=== PATIENT | female | born 1945 | race Caucasian/White ===

== ENCOUNTER 2017-12-06 23:35 | Inpatient (IN) | payer MEDICARE ==
[~2017-12-06] VITALS: Ht 167.6 cm; Wt 106.8 kg
--- NOTE | 2017-12-06 23:46 | NUR ---
Patient brought in by [id number], patient was ambulating on the street, stepped into a pothole and had an episode of fall. Patient states she felt her RLE "become weak after stepping into the pothole". 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 patient denies head injury or LOC. She is noted with RLE pain/ internal rotation of the RLE. Patient states she has dull, gnawing pain of 8/10. The fall was seen by her caregiver and caregiver confirms no head injury was present. Respirations even and unlabored. no SOB or congestion noted. No cardiovascular distress noted. All pulses present and palpable. RLE pulses present and palpable 2+. Skin color /turgor/ cap. refill WNL. No c/o GI/ pain or acute distress. Patient denies truma to the chest or thoracic area at this time. Patient placed in bed, bed in lowest position, wheels locked. Siderails up x2. Call light is within reach. All patient needs attended and met.
[2017-12-07] MEDS ORDERED: CLON0.2T PO (00:09)
[2017-12-07] MEDS ORDERED: VALS160T2 PO (00:09)
[2017-12-07] MEDS ORDERED: NIFE60TA69 PO (00:09)
[2017-12-07] MEDS ORDERED: CARV25TA2 PO (00:09)
[2017-12-07] MEDS ORDERED: CETI-102 PO (00:09)
[2017-12-07] MEDS ORDERED: ROSU20TA PO (00:09)
[2017-12-07] MEDS ORDERED: ESOM40CA PO (00:09)
[2017-12-07] MEDS ORDERED: ESCI20TA PO (00:09)
[2017-12-07] MEDS ORDERED: METF10004 PO (00:09)
--- NOTE | 2017-12-07 00:10 | NUR ---
XRAY AT PT BEDSIDE.
[2017-12-07 00:13] LABS: BASOPHILS # (AUTO) 0.1 K/uL (0.0-8.0); BASOPHILS % (AUTO) 0.9 % (0.0-2.0); CARBON DIOXIDE 25 mmol/L (21-32); CHLORIDE 101 mmol/L (98-107); EOSINOPHILS # (AUTO) 0.4 K/uL (0.0-0.7); EOSINOPHILS % (AUTO) 5.4 % (0.0-7.0); GLUCOSE 139 mg/dL (74-106); HEMATOCRIT 38.7 % (31.2-41.9); HEMOGLOBIN 12.6 g/dL (10.9-14.3); LYMPHOCYTES # (AUTO) 1.6 K/uL (20.0-40.0); LYMPHOCYTES % (AUTO) 20.1 % (20.5-51.5); MEAN CORPUSCULAR HEMOGLOBIN 28.5 uug (24.7-32.8); MEAN CORPUSCULAR HGB CONC 33 g/dL (32.3-35.6); MEAN CORPUSCULAR VOLUME 87.1 fL (75.5-95.3); MONOCYTES # (AUTO) 0.6 K/uL (2.0-10.0); MONOCYTES % (AUTO) 7.3 % (0.0-11.0); NEUTROPHILS # (AUTO) 5.2 K/uL (1.8-8.9); NEUTROPHILS % (AUTO) 66.3 % (38.5-71.5); PLATELET COUNT (AUTO) 211 K/uL (179-408); POTASSIUM 4.5 mmol/L (3.5-5.1); RED BLOOD CELL COUNT(AUTO) 4.44 MIL/uL (3.63-4.92); UREA NITROGEN, BLOOD 20 mg/dL (7-18); WHITE BLOOD COUNT (AUTO) 7.9 K/uL (3.8-11.8)
--- NOTE | 2017-12-07 00:14 | NUR ---
PT FRIEND/CAREGIVER AT BEDSIDE.
--- NOTE | 2017-12-07 00:31 | NUR ---
DR SOOD SPEAKING W/ ORTHO INSTRUMENT AND ELECTRICAL TECHNICIAN DR. ALVAREZ REGARDING PT ADMISSION.
--- NOTE | 2017-12-07 00:35 | NUR ---
DR SOOD SPEAKING W/ AGOSTO FOR PT ADMISSION.
[2017-12-07] MEDS ORDERED: IV NS 1000 ML 1,000 ML IV PRN (00:40)
[2017-12-07] MEDS ORDERED: HYDROCODONE/APAP 5-325MG TABLET PO PRN (00:45)
[2017-12-07] MEDS ORDERED: HYDROMORPHONE 2 MG/1 ML DISP.SYRIN ONE (00:55)
[2017-12-07] MEDS ORDERED: ONDANSETRON 4 MG/2 ML VIAL IV ONE (01:00)
[2017-12-07] MEDS ORDERED: HYDROMORPHONE 1 MG/1 ML DISP.SYRIN IV ONE (01:00)
--- NOTE | 2017-12-07 01:07 | NUR ---
REPORT GIVEN TO LUISITO BUSH.
--- NOTE | 2017-12-07 01:30 | NUR ---
Admit to [facility] from ER via [facility]. Transfer from [facility] to bed. Orientated pt to room and hospital setting. S/l x2 right and left a.c intact. pt belongings inventory done. v/s taken. Right leg shorter than left leg, right distal pulse intact and less than 2 seconds capillary refill to right great toe. Pt c/o of right hip pain only upon movement. right ankle edema pt states she fx her ankle a month ago. Siderails up. Call light within reach. Bed in lowest position. Bed wheels locked.
--- NOTE | 2017-12-07 01:31 | NUR ---
Pt. admitted to [facility], under care of TRINY Mcrae List completed
[2017-12-07 01:52] VITALS: BP 160/82
[2017-12-07] MEDS: MORPHINE SULFATE 4 MG/1 ML DISP.SYRIN IV PRN ×5 (02:34→20:05)
[2017-12-07 04:09] VITALS: BP 114/80
--- NOTE | 2017-12-07 06:12 | NUR ---
End of Shift: Lying in awake watching tv bed flat I.V. 0.9% infusing at 75cc hr to r ac suraj well. Remains npo. F/c drainging clear yellow urine via gravity. Siderails up, Call light within reach. bed in lowest position and bed wheels locked.
--- NOTE | 2017-12-07 08:00 | NUR ---
PT has shortened right leg and internally rotated. Discussed plan of care re: pain management, fall precaution, and frequent turning. Pt agreeable with plan of care. IV on merced AC intact. IVF infusing as ordered. Call light is within reach.
[2017-12-07] MEDS: VALSARTAN 160 MG TABLET PO SCH (08:38)
[2017-12-07] MEDS: METFORMIN HCL 500 MG TABLET PO SCH ×2 (08:39→16:52)
[2017-12-07] MEDS: ESCITALOPRAM OXALATE 10 MG TABLET PO SCH (08:39)
[2017-12-07] MEDS: NIFEdipine XL 60 MG TABSR PO SCH (08:40)
[2017-12-07] MEDS: CLONIDINE HCL 0.2 MG TABLET PO SCH ×2 (08:41→20:05)
[2017-12-07] MEDS: CETIRIZINE HCL 10 MG TABLET PO SCH (08:41)
[2017-12-07] MEDS: CARVEDILOL 25 MG TABLET PO SCH ×2 (08:41→16:53)
[2017-12-07] MEDS: PANTOPRAZOLE SODIUM 40 MG TABLET.DR PO SCH (08:45)
[2017-12-07] MEDS ORDERED: Medication Not On Formulary EA (Escitalopram Oxalate (Lexapro) 20 MG) PO SCH (09:00)
[2017-12-07] MEDS ORDERED: Medication Not On Formulary EA (Rosuvastatin Calcium (Crestor) 20 MG) PO SCH (09:00)
[2017-12-07] MEDS ORDERED: Medication Not On Formulary EA (Metformin Hcl 1,000 MG) PO SCH (09:00)
[2017-12-07] MEDS ORDERED: Medication Not On Formulary EA (Esomeprazole Mag Trihydrate (Nexium) 40 MG) PO SCH (09:00)
[2017-12-07] MEDS ORDERED: DEXTROSE 50% 50 ML DISP.SYRIN IV PRN (10:45)
[2017-12-07] MEDS: IV LACTATED RINGERS SOLUTION 1,000 ML IV PRN (11:12)
[2017-12-07] MEDS: INSULIN REGULAR, HUMAN 300 UNIT/3 ML VIAL SQ PRN ×2 (11:20→20:24)
[2017-12-07] MEDS ORDERED: POLYVINYL ALCOHOL OPHT DROPS 15 ML BOTTLE EACHEYE PRN (11:30)
[2017-12-07 11:49] VITALS: BP 123/68
[2017-12-07] MEDS: BLOOD SUGAR DIAGNOSTIC 1 EACH STRIP VI SCH ×3 (14:32→20:22)
[2017-12-07 16:08] VITALS: BP 176/87
--- NOTE | 2017-12-07 18:00 | NUR ---
Plan of care effective. Pts pain managed with Morphine 4 mg which was increased due to Morphinw 2 mg was not effective earlier this am. No witness fall noted this shift. Call light is within reach.
--- NOTE | 2017-12-07 18:26 | NUR ---
Plan of care effective. Pt's pain was managed after CAR RECORD CLERK increased MS to 4mg. PT states that her pain is more comfortable. PT's IVF LR infusing @ 75cc/hr. PT signed consent for tomorrow of R hip ORIF and agreeable with suspending DNI status - ordered Received from CAR RECORD CLERK. Pt is in no acute distress. Cardio saw pt and cleared for surgery tomorrow. Discussed NPO PMN with pt - pt verbalized understanding. Call light is within reach.
[2017-12-07] MEDS: ATORVASTATIN 40 MG TABLET PO SCH (20:05)
[2017-12-07] MEDS: Z GUARD REMEDY PASTE 57 GM TUBE TOP PRN (20:22)
[2017-12-07 20:40] VITALS: BP 174/86
[2017-12-07 21:26] LABS: *BILIRUBIN,URIN NEGATIVE (NEGATIVE); *BLOOD, URINE 2+ (NEGATIVE); *CLARITY,URINE CLEAR (CLEAR); *COLOR,URINE YELLOW (YELLOW); *KETONES,URINE NEGATIVE (NEGATIVE); *PROTEIN,URINE 1+ (NEGATIVE); *UROBILINOGEN,URINE 0.2 E.U./dl (NORMAL); LEUKOCYTE ESTERASE ,URINE NEGATIVE (NEGATIVE); NITRITE, URINE NEGATIVE (NEGATIVE); PH,URINE 5.5 (5.0-8.0); UGLUCOSE NEGATIVE (NEGATIVE)
[2017-12-07 21:35] LABS: BACTERIA,URINE MODERATE /HPF (NONE SEEN); SQUAMOUS EPITHELIAL CELL,UR FEW /HPF (NONE SEEN)
[2017-12-08] MEDS: MORPHINE SULFATE 4 MG/1 ML DISP.SYRIN IV PRN ×2 (02:22→20:29)
[2017-12-08] MEDS: IV LACTATED RINGERS SOLUTION 1,000 ML IV PRN (02:23)
[2017-12-08 04:16] VITALS: BP 164/75
[2017-12-08] MEDS: PANTOPRAZOLE SODIUM 40 MG TABLET.DR PO SCH (06:13)
[2017-12-08] MEDS: BLOOD SUGAR DIAGNOSTIC 1 EACH STRIP VI SCH ×4 (06:13→20:43)
[2017-12-08] MEDS: INSULIN REGULAR, HUMAN 300 UNIT/3 ML VIAL SQ PRN ×3 (06:16→20:44)
--- NOTE | 2017-12-08 06:18 | NUR ---
Morning accu check showed 225, covered w/ 2 units Regular Insulin SQ per SS coverage. No acute resp distress, vital signs WNL. Kept NPO & patient instructed.
[2017-12-08 06:55] LABS: CARBON DIOXIDE 30 mmol/L (21-32); CHLORIDE 101 mmol/L (98-107); CHOLESTEROL 117 mg/dL (<200); CREATININE 0.9 mg/dL (0.6-1.3); GLUCOSE 199 mg/dL (74-106); HDL CHOLESTEROL 64 mg/dL (40-60); MAGNESIUM 1.5 mg/dL (1.8-2.4); PHOSPHOROUS 3.4 mg/dL (2.5-4.9); POTASSIUM 4.8 mmol/L (3.5-5.1); TRIGLYCERIDES 85 MG/DL (30-150); UREA NITROGEN, BLOOD 12 mg/dL (7-18)
[2017-12-08 07:02] LABS: MEAN CORPUSCULAR HEMOGLOBIN 28.7 uug (24.7-32.8)
[2017-12-08 07:08] LABS: THYROID STIMULATING HORMONE 0.849 mIU/mL (0.358-3.740)
[2017-12-08] MEDS ORDERED: LIDOCAINE HCL 1% 20 ML VIAL MC ONE (07:21)
[2017-12-08] MEDS ORDERED: EPHEDRINE SULFATE 50 MG/ML AMPUL MC ONE (07:21)
[2017-12-08] MEDS ORDERED: CEFAZOLIN 1 G VIAL MC ONE (07:21)
[2017-12-08] MEDS ORDERED: PROPOFOL 200 MG/20 ML BOTTLE IV ONE (07:21)
[2017-12-08] MEDS ORDERED: GLYCOPYRROLATE 0.2 MG/ML VIAL MC ONE (07:21)
[2017-12-08] MEDS ORDERED: PHENYLEPHRINE 10 MG/1 ML VIAL MC ONE (07:21)
[2017-12-08] MEDS ORDERED: SEVOFLURANE 250 ML BOTTLE IH ONE (07:21)
[2017-12-08 07:33] LABS: BASOPHILS % (AUTO) 0.3 % (0.0-2.0); EOSINOPHILS # (AUTO) 0.1 K/uL (0.0-0.7); EOSINOPHILS % (AUTO) 2.2 % (0.0-7.0); LYMPHOCYTES # (AUTO) 0.7 K/uL (20.0-40.0); LYMPHOCYTES % (AUTO) 11.1 % (20.5-51.5); MEAN CORPUSCULAR HGB CONC 33 g/dL (32.3-35.6); MEAN CORPUSCULAR VOLUME 87.2 fL (75.5-95.3); MONOCYTES # (AUTO) 0.6 K/uL (2.0-10.0); MONOCYTES % (AUTO) 9.2 % (0.0-11.0); NEUTROPHILS # (AUTO) 5.1 K/uL (1.8-8.9); NEUTROPHILS % (AUTO) 77.2 % (38.5-71.5); PLATELET COUNT (AUTO) 182 K/uL (179-408); RED BLOOD CELL COUNT(AUTO) 3.79 MIL/uL (3.63-4.92); WHITE BLOOD COUNT (AUTO) 6.7 K/uL (3.8-11.8)
[2017-12-08 07:36] LABS: HEMOGLOBIN 10.9 g/dL (10.9-14.3)
--- NOTE | 2017-12-08 08:00 | NUR ---
pt alert and oriented x 4. Pt denies any c/o pain. Kept pt NPO for 4pm scheduled Right hip orif - consent signed. Yaron heels floated frequent turning implemented. Discussed plan of care for today re: proper pain mangement, npo status 2nd to surgery this afternoon, and fall precaution. IV LR infusing @ 75cc/hr. Call light is within reach.
[2017-12-08] MEDS: METFORMIN HCL 500 MG TABLET PO SCH ×2 (08:16→18:00)
[2017-12-08] MEDS: ESCITALOPRAM OXALATE 10 MG TABLET PO SCH (08:16)
[2017-12-08] MEDS: NIFEdipine XL 60 MG TABSR PO SCH (08:17)
[2017-12-08] MEDS: CETIRIZINE HCL 10 MG TABLET PO SCH (08:17)
[2017-12-08] MEDS: CLONIDINE HCL 0.2 MG TABLET PO SCH ×2 (08:18→20:26)
[2017-12-08] MEDS: CARVEDILOL 25 MG TABLET PO SCH ×2 (08:18→18:00)
[2017-12-08] MEDS: VALSARTAN 160 MG TABLET PO SCH (08:18)
[2017-12-08] MEDS ORDERED: CLONIDINE HCL 0.1 MG TABLET PO PRN (10:15)
[2017-12-08] MEDS: MAGNESIUM SULFATE/D5W 100 ML IV SCH ×2 (10:57→12:12)
[2017-12-08 11:48] VITALS: BP 93/47
[2017-12-08] MEDS ORDERED: BUPIVACAINE PF 0.5% 30 ML VIAL ONE (15:37)
[2017-12-08] MEDS ORDERED: POLYMYXIN B SULFATE 500,000 UNITS, BACITRACIN 50,000 UNITS, NORMAL SALINE 20 ML MC ONE ×3 (15:45)
[2017-12-08] MEDS ORDERED: CEFAZOLIN 2 G in IV DEXTROSE 5% 100 ML IV PRN (16:00)
[2017-12-08 16:12] VITALS: BP 90/46
--- NOTE | 2017-12-08 16:30 | NUR ---
Pt is picked up by surgical team. Consent signed, preop checklist done. Belongings of pt given to her caregiver.
[2017-12-08] MEDS ORDERED: FENTANYL CITRATE 100 MCG/2 ML AMPUL ONE ×2 (16:32→19:25)
[2017-12-08] MEDS ORDERED: ROCURONIUM BROMIDE 50 MG/5 ML VIAL ONE (16:32)
[2017-12-08 16:41] LABS: *BILIRUBIN,URIN NEGATIVE (NEGATIVE); *BLOOD, URINE 2+ (NEGATIVE); *CLARITY,URINE SLIGHTLY CLOUDY (CLEAR); *COLOR,URINE YELLOW (YELLOW); *KETONES,URINE NEGATIVE (NEGATIVE); *PROTEIN,URINE 2+ (NEGATIVE); *UROBILINOGEN,URINE 0.2 E.U./dl (NORMAL); NITRITE, URINE NEGATIVE (NEGATIVE); PH,URINE 5.5 (5.0-8.0)
[2017-12-08 16:57] LABS: LEUKOCYTE ESTERASE ,URINE TRACE (NEGATIVE); UGLUCOSE 1+ (NEGATIVE)
[2017-12-08 16:59] LABS: BACTERIA,URINE MANY /HPF (NONE SEEN); MUCUS,URINE FEW /LPF (0-FEW); RBC,URINE 20-50 /HPF (0-3); YEAST,URINE FEW /HPF (NONE SEEN)
--- NOTE | 2017-12-08 18:16 | NUR ---
pt still at downstairs for surgery. call light is within reach.
--- NOTE | 2017-12-08 19:24 | NUR ---
Patient still in Operating Room hip surgery on going.
[2017-12-08 20:20] VITALS: BP 136/55
--- NOTE | 2017-12-08 20:20 | NUR ---
Patient back from Recovery room, awake alert & oriented, no SOB denies chest pain. Right hip dressing intact & clean w/ ice pack in place. Still c/o right hip post op pain w/ 01/10 pain level. IVF NS at 100 ml/hr started as ordered. Left AC IV line in place no signs of infiltration. Vital signs stable.
[2017-12-08] MEDS: ATORVASTATIN 40 MG TABLET PO SCH (20:26)
[2017-12-08] MEDS: ONDANSETRON 4 MG/2 ML VIAL IV PRN (20:29)
[2017-12-08] MEDS ORDERED: HYDROCODONE/APAP 5-325MG TABLET PO PRN (20:45)
[2017-12-08] MEDS: Z GUARD REMEDY PASTE 57 GM TUBE TOP PRN (20:45)
[2017-12-08] MEDS: IV NS 1000 ML 1,000 ML IV PRN (20:46)
[2017-12-08] MEDS: ASPIRIN EC 325 MG TABLET.DR PO SCH (20:47)
[2017-12-08 21:00] VITALS: BP 125/74
--- NOTE | 2017-12-08 21:15 | NUR ---
Awake, with daughter at bedside. No pain complaint at this time. Re-checked vital signs : BP125/74 HR 76 RR 20 T 98.3 F O2Sat 96% in 2L/NC.
[2017-12-08 22:30] VITALS: BP 130/66
--- NOTE | 2017-12-08 23:00 | NUR ---
Patient still awake no SOB noted. Discussed & instructed to start breathing exercise, Incentive spirometer provided. Neurovascular check WNL. Patient able to wiggle toes denies any tingling sensation.
[2017-12-09] MEDS: CEFAZOLIN 1 G in PREMIXED 1 EACH IV SCH ×2 (00:58→08:06)
[2017-12-09] MEDS: MORPHINE SULFATE 4 MG/1 ML DISP.SYRIN IV PRN ×2 (01:03→21:55)
[2017-12-09 04:12] VITALS: BP 109/63
[2017-12-09] MEDS: PANTOPRAZOLE SODIUM 40 MG TABLET.DR PO SCH (05:13)
--- NOTE | 2017-12-09 05:32 | NUR ---
Repositioned in bed, right hip precaution observed. Medicated for pain PRN. Kept ice pack on right hip dressing site.
[2017-12-09] MEDS: BLOOD SUGAR DIAGNOSTIC 1 EACH STRIP VI SCH ×4 (06:03→20:12)
[2017-12-09 06:34] LABS: BASOPHILS % (AUTO) 0.3 % (0.0-2.0); EOSINOPHILS # (AUTO) 0.1 K/uL (0.0-0.7); EOSINOPHILS % (AUTO) 1.5 % (0.0-7.0); LYMPHOCYTES # (AUTO) 1.4 K/uL (20.0-40.0); LYMPHOCYTES % (AUTO) 18.9 % (20.5-51.5); MEAN CORPUSCULAR HEMOGLOBIN 29.7 uug (24.7-32.8); MEAN CORPUSCULAR HGB CONC 34 g/dL (32.3-35.6); MEAN CORPUSCULAR VOLUME 86.5 fL (75.5-95.3); MONOCYTES # (AUTO) 0.8 K/uL (2.0-10.0); MONOCYTES % (AUTO) 11.1 % (0.0-11.0); NEUTROPHILS # (AUTO) 5.2 K/uL (1.8-8.9); NEUTROPHILS % (AUTO) 68.2 % (38.5-71.5); PLATELET COUNT (AUTO) 159 K/uL (179-408); RED BLOOD CELL COUNT(AUTO) 2.82 MIL/uL (3.63-4.92); WHITE BLOOD COUNT (AUTO) 7.6 K/uL (3.8-11.8)
[2017-12-09] MEDS: IV NS 1000 ML 1,000 ML IV PRN ×2 (06:43→18:03)
[2017-12-09 06:47] LABS: HEMATOCRIT 24.4 % (31.2-41.9); HEMOGLOBIN 8.4 g/dL (10.9-14.3)
[2017-12-09] MEDS: INSULIN REGULAR, HUMAN 300 UNIT/3 ML VIAL SQ PRN ×4 (07:56→20:37)
[2017-12-09] MEDS: ESCITALOPRAM OXALATE 10 MG TABLET PO SCH (08:00)
[2017-12-09] MEDS: ASPIRIN EC 325 MG TABLET.DR PO SCH ×2 (08:00→17:01)
[2017-12-09] MEDS: METFORMIN HCL 500 MG TABLET PO SCH ×2 (08:00→17:56)
[2017-12-09] MEDS: CETIRIZINE HCL 10 MG TABLET PO SCH (08:00)
[2017-12-09] MEDS: VALSARTAN 160 MG TABLET PO SCH (08:01)
[2017-12-09] MEDS: CARVEDILOL 25 MG TABLET PO SCH (08:01)
[2017-12-09 08:57] LABS: ALANINE AMINOTRANSFERASE 15 U/L (14-59); ALKALINE PHOSPHATASE 64 U/L (50-136); ASPARTATE AMINOTRANSFERASE 20 U/L (15-37); BILIRUBIN,TOTAL 0.3 mg/dL (0.2-1.0); CARBON DIOXIDE 26 mmol/L (21-32); CHLORIDE 101 mmol/L (98-107); CREATININE 1.1 mg/dL (0.6-1.3); GLUCOSE 131 mg/dL (74-106); MAGNESIUM 1.9 mg/dL (1.8-2.4); PHOSPHOROUS 3.9 mg/dL (2.5-4.9); POTASSIUM 4.5 mmol/L (3.5-5.1); TOTAL PROTEIN, SERUM 5.6 g/dL (6.4-8.2); UREA NITROGEN, BLOOD 18 mg/dL (7-18)
[2017-12-09] MEDS: CLONIDINE HCL 0.2 MG TABLET PO SCH (09:06)
[2017-12-09] MEDS: NIFEdipine XL 60 MG TABSR PO SCH (09:06)
[2017-12-09 11:06] LABS: IRON, SERUM 13 ug/dL (50-175)
[2017-12-09 11:55] VITALS: BP 105/47
[2017-12-09] MEDS: FERROUS SULFATE 325 MG TABEC PO SCH ×2 (12:46→20:13)
[2017-12-09] MEDS: CEFTRIAXONE 1 G in IV DEXTROSE 5% 50 ML IV SCH (12:46)
[2017-12-09 15:47] VITALS: BP 99/52
--- NOTE | 2017-12-09 18:00 | NUR ---
Patient alert, in no distress. Right hip dressing clean/dry/intact, no bleeding noted. Patient c/o of pain upon movement but patient refuses to take pain medication, stating "I'm still ok". Patient teachings provided to ask for pain medication when needed and to avoid tolerating pain. Patient teachings provided for the use of incentive spirometer while awake. Patient verbalized understanding. Neurovascular assessment done every 2-4 hrs, patient able to wiggle toes, no c/o of numbness/tingling. Right hip alignment at all times. DVT pumps on. Repositioned patient for comfort, kept patient clean/dry. Parkinson cath intact/patent, draining yellow urine. Accuchecks done as ordered, no s/s of hypoglycemia/hyperglycemia noted. VS stable, afebrile. IVF running, no infiltration noted. Safety measures in place, call light within reach, bed alarm on. Will continue to monitor.
[2017-12-09 20:00] VITALS: BP 126/57
[2017-12-09] MEDS: ACETAMINOPHEN 325 MG TABLET PO PRN (20:13)
[2017-12-09] MEDS: ATORVASTATIN 40 MG TABLET PO SCH (20:13)
[2017-12-09] MEDS: MAGNESIUM HYDROXIDE 30 ML LIQUID UDC PO PRN (20:15)
[2017-12-09] MEDS: Z GUARD REMEDY PASTE 57 GM TUBE TOP PRN (20:20)
[2017-12-09] MEDS: ONDANSETRON 4 MG/2 ML VIAL IV PRN (21:38)
--- NOTE | 2017-12-09 22:06 | NUR ---
Patient awake no distress noted. Vital signs WNL. Right hip dressing intact & clean, kept ice pack on incision site dressing. Repositioned in bed, hip precaution observed. Medicated for pain PRN. No BM for 3 days, MOM given. Kept comfortable.
[2017-12-10] VITALS (9 sets, daily range): BP systolic 99–127; BP diastolic 51–68
[2017-12-10] MEDS: IV NS 1000 ML 1,000 ML IV PRN ×2 (04:53→23:00)
[2017-12-10] MEDS: PANTOPRAZOLE SODIUM 40 MG TABLET.DR PO SCH (05:10)
[2017-12-10] MEDS: BLOOD SUGAR DIAGNOSTIC 1 EACH STRIP VI SCH ×4 (05:30→21:35)
--- NOTE | 2017-12-10 05:35 | NUR ---
Noted frequent burping & passing gas, patient c/o abdominal cramps. Bedpan provided.
[2017-12-10 06:24] LABS: EOSINOPHILS # (AUTO) 0.3 K/uL (0.0-0.7); MONOCYTES # (AUTO) 0.9 K/uL (2.0-10.0); MONOCYTES % (AUTO) 10.6 % (0.0-11.0)
[2017-12-10 06:26] LABS: BASOPHILS % (AUTO) 0.2 % (0.0-2.0); EOSINOPHILS % (AUTO) 3.6 % (0.0-7.0); HEMATOCRIT 21.5 % (31.2-41.9); LYMPHOCYTES % (AUTO) 12.2 % (20.5-51.5); MEAN CORPUSCULAR HEMOGLOBIN 28.8 uug (24.7-32.8); MEAN CORPUSCULAR HGB CONC 34 g/dL (32.3-35.6); NEUTROPHILS # (AUTO) 6.2 K/uL (1.8-8.9); NEUTROPHILS % (AUTO) 73.4 % (38.5-71.5); PLATELET COUNT (AUTO) 157 K/uL (179-408); WHITE BLOOD COUNT (AUTO) 8.5 K/uL (3.8-11.8)
--- NOTE | 2017-12-10 06:29 | NUR ---
Patient still on a bedpan but no BM yet. Bedside commode provided
[2017-12-10 06:30] LABS: ALANINE AMINOTRANSFERASE 9 U/L (14-59); ALKALINE PHOSPHATASE 64 U/L (50-136); ASPARTATE AMINOTRANSFERASE 16 U/L (15-37); BILIRUBIN,TOTAL 0.2 mg/dL (0.2-1.0); CARBON DIOXIDE 30 mmol/L (21-32); CHLORIDE 103 mmol/L (98-107); GLUCOSE 198 mg/dL (74-106); MAGNESIUM 1.6 mg/dL (1.8-2.4); PHOSPHOROUS 1.9 mg/dL (2.5-4.9); POTASSIUM 4.5 mmol/L (3.5-5.1); TOTAL PROTEIN, SERUM 5.6 g/dL (6.4-8.2); UREA NITROGEN, BLOOD 17 mg/dL (7-18)
[2017-12-10 06:32] LABS: HEMOGLOBIN 7.2 g/dL (10.9-14.3)
--- NOTE | 2017-12-10 06:33 | NUR ---
Received a call from the lab., patient's current Hemoglobin is 7.2 g/dl. Paged Sarah WOODS on-call for orders.
--- NOTE | 2017-12-10 06:41 | NUR ---
Dr. Garay called back & ordered transfuse 1 unit PRBC now.
[2017-12-10] MEDS: MORPHINE SULFATE 4 MG/1 ML DISP.SYRIN IV PRN ×2 (07:02→13:41)
--- NOTE | 2017-12-10 07:21 | NUR ---
Obtained consent for blood transfusion, copy placed in chart. Report given to Maria A JORGE.
[2017-12-10] MEDS: FERROUS SULFATE 325 MG TABEC PO SCH ×2 (08:02→20:34)
[2017-12-10] MEDS: INSULIN REGULAR, HUMAN 300 UNIT/3 ML VIAL SQ PRN ×3 (08:02→17:08)
[2017-12-10] MEDS: METFORMIN HCL 500 MG TABLET PO SCH ×2 (08:03→17:01)
[2017-12-10] MEDS: ASPIRIN EC 325 MG TABLET.DR PO SCH (08:03)
[2017-12-10] MEDS: CETIRIZINE HCL 10 MG TABLET PO SCH (08:03)
[2017-12-10] MEDS: ESCITALOPRAM OXALATE 10 MG TABLET PO SCH (08:04)
[2017-12-10] MEDS: CEFTRIAXONE 1 G in IV DEXTROSE 5% 50 ML IV SCH (08:32)
--- NOTE | 2017-12-10 10:10 | NUR ---
Started blood transfusion, protocol followed, witnessed/verification done by/with another licensed RN.
[2017-12-10] MEDS: ACETAMINOPHEN 325 MG TABLET PO PRN (10:16)
[2017-12-10] MEDS ORDERED: DEXTROSE 50% 50 ML DISP.SYRIN IV PRN (10:30)
[2017-12-10] MEDS ORDERED: MAGNESIUM SULFATE/D5W 100 ML IV SCH ×2 (10:30→15:00)
[2017-12-10] MEDS ORDERED: INSULIN REGULAR, HUMAN 300 UNITS/3 ML VIAL SQ PRN (10:30)
[2017-12-10] MEDS ORDERED: NEUTRA PHOS PACKET PO ONE (10:30)
--- NOTE | 2017-12-10 10:30 | NUR ---
Blood transfusing, patient tolerating procedure well, no s/s of adverse reaction noted, no c/o of SOB or chest pain. Will continue to monitor.
--- NOTE | 2017-12-10 13:45 | NUR ---
Patient s/p blood transfusion 1 bag of PRBC. Patient tolerated procedure well, VS stable, afebrile. Will continue to monitor.
--- NOTE | 2017-12-10 15:00 | NUR ---
1 bag of magnesium administered scheduled 1030. Delay due to blood transfusion and physical therapy. Pharm notified.
[2017-12-10] MEDS: glipiZIDE 5 MG TABLET PO SCH (16:50)
[2017-12-10] MEDS: MEROPENEM 1 G in IV NORMAL SALINE 100 ML IV SCH ×2 (16:50→20:34)
[2017-12-10] MEDS: ATORVASTATIN 40 MG TABLET PO SCH (20:34)
[2017-12-11 04:00] VITALS: BP 147/77
[2017-12-11] MEDS: PANTOPRAZOLE SODIUM 40 MG TABLET.DR PO SCH (06:05)
[2017-12-11] MEDS: BLOOD SUGAR DIAGNOSTIC 1 EACH STRIP VI SCH ×4 (06:10→20:40)
[2017-12-11 06:37] LABS: BASOPHILS % (AUTO) 0.4 % (0.0-2.0); EOSINOPHILS # (AUTO) 0.3 K/uL (0.0-0.7); EOSINOPHILS % (AUTO) 3.6 % (0.0-7.0); HEMATOCRIT 24.9 % (31.2-41.9); HEMOGLOBIN 8.6 g/dL (10.9-14.3); LYMPHOCYTES # (AUTO) 0.9 K/uL (20.0-40.0); LYMPHOCYTES % (AUTO) 9.9 % (20.5-51.5); MEAN CORPUSCULAR HEMOGLOBIN 29.9 uug (24.7-32.8); MEAN CORPUSCULAR HGB CONC 35 g/dL (32.3-35.6); MEAN CORPUSCULAR VOLUME 86.5 fL (75.5-95.3); MONOCYTES # (AUTO) 0.7 K/uL (2.0-10.0); MONOCYTES % (AUTO) 8.1 % (0.0-11.0); NEUTROPHILS # (AUTO) 7.1 K/uL (1.8-8.9); PLATELET COUNT (AUTO) 173 K/uL (179-408); RED BLOOD CELL COUNT(AUTO) 2.87 MIL/uL (3.63-4.92); WHITE BLOOD COUNT (AUTO) 9.1 K/uL (3.8-11.8)
[2017-12-11 06:58] LABS: ALANINE AMINOTRANSFERASE 7 U/L (14-59); ALKALINE PHOSPHATASE 71 U/L (50-136); ASPARTATE AMINOTRANSFERASE 17 U/L (15-37); BILIRUBIN,TOTAL 0.4 mg/dL (0.2-1.0); CARBON DIOXIDE 30 mmol/L (21-32); CHLORIDE 104 mmol/L (98-107); CREATININE 0.9 mg/dL (0.6-1.3); GLUCOSE 187 mg/dL (74-106); MAGNESIUM 1.6 mg/dL (1.8-2.4); PHOSPHOROUS 1.2 mg/dL (2.5-4.9); POTASSIUM 4.9 mmol/L (3.5-5.1); TOTAL PROTEIN, SERUM 5.7 g/dL (6.4-8.2); UREA NITROGEN, BLOOD 12 mg/dL (7-18)
--- NOTE | 2017-12-11 07:06 | NUR ---
pt s/p right hip orif, with bulky dressing ,clean and dry.medicated with norco x1. vss,afebrile no bm gas only. poor appetite accucheck last night was 66 mg/dl and fed by caregiver rechecked 93mg, this morning 201 mg/dl.continue with iv fluids and antibiotics, call light at reached.
--- NOTE | 2017-12-11 07:53 | NUR ---
stable condition, no s/s distress. blood sugar will be monitor and controlled with insulin. bed rest at this time, will have physical therapy. will continue to monitor.
[2017-12-11] MEDS: CETIRIZINE HCL 10 MG TABLET PO SCH (08:03)
[2017-12-11] MEDS: FERROUS SULFATE 325 MG TABEC PO SCH ×2 (08:03→20:07)
[2017-12-11] MEDS: METFORMIN HCL 500 MG TABLET PO SCH ×2 (08:03→17:07)
[2017-12-11] MEDS: glipiZIDE 5 MG TABLET PO SCH (08:04)
[2017-12-11] MEDS: ESCITALOPRAM OXALATE 10 MG TABLET PO SCH (08:04)
[2017-12-11] MEDS: MEROPENEM 1 G in IV NORMAL SALINE 100 ML IV SCH (08:55)
[2017-12-11] MEDS: MORPHINE SULFATE 4 MG/1 ML DISP.SYRIN IV PRN (09:37)
[2017-12-11] MEDS ORDERED: NEUTRA PHOS PACKET PO ONE ×2 (10:15→17:00)
[2017-12-11] MEDS ORDERED: DEXTROSE 50% 50 ML DISP.SYRIN IV PRN (10:15)
[2017-12-11 11:08] VITALS: BP 172/85
--- NOTE | 2017-12-11 11:30 | NUR ---
blood sugar 148. insulin will not be administered due to prevention of hypoglycemia. patient has had a poor appetite and had one episode of hypoglycemia yesterday night. will do accucheck before dinner and provide blood sugar management as needed.
[2017-12-11] MEDS: MAGNESIUM SULFATE/D5W 100 ML IV SCH ×2 (11:37→13:12)
[2017-12-11 12:31] LABS: CARBON DIOXIDE 29 mmol/L (21-32); CHLORIDE 102 mmol/L (98-107); CREATININE 1.1 mg/dL (0.6-1.3); GLUCOSE 157 mg/dL (74-106); PHOSPHOROUS 1.5 mg/dL (2.5-4.9); POTASSIUM 4.8 mmol/L (3.5-5.1); UREA NITROGEN, BLOOD 13 mg/dL (7-18)
[2017-12-11] MEDS ORDERED: POTASSIUM PHOSPHATE MM 7.5 MMOL in IV DEXTROSE 5% 100 ML IV ONE (13:00)
[2017-12-11] MEDS: NITROFURANTOIN/NITROFURAN MAC 100 MG CAPSULE PO SCH ×2 (14:12→20:07)
[2017-12-11] MEDS: CARVEDILOL 25 MG TABLET PO SCH ×2 (14:13→17:06)
[2017-12-11] MEDS: DOCUSATE SODIUM 100 MG CAPSULE PO SCH ×2 (14:13→20:07)
[2017-12-11 15:04] VITALS: BP 179/94
[2017-12-11] MEDS: IV NS 1000 ML 1,000 ML IV PRN (15:36)
[2017-12-11] MEDS: INSULIN REGULAR, HUMAN 300 UNIT/3 ML VIAL SQ PRN ×2 (16:05→20:09)
[2017-12-11 16:19] VITALS: BP 161/88
[2017-12-11] MEDS ORDERED: MEROPENEM 1 G in IV NORMAL SALINE 100 ML IV SCH (17:00)
--- NOTE | 2017-12-11 17:59 | NUR ---
right lower extremity - pedal pulse present. no complaints of pain verbalized by patient. blood pressure elevated - managed with bp medications. afebrile. antibiotics administered. stable. call light within reach.
[2017-12-11] MEDS ORDERED: LEVOFLOXACIN 500 MG/D5W 500 MG in PREMIXED 1 EACH IV SCH (18:00)
[2017-12-11 19:00] VITALS: BP 165/87
[2017-12-11] MEDS: ATORVASTATIN 40 MG TABLET PO SCH (20:07)
[2017-12-11] MEDS: CLONIDINE HCL 0.2 MG TABLET PO SCH (20:11)
--- NOTE | 2017-12-11 20:30 | NUR ---
PATIENT AWAKE IN BED, AAOX3 DENIES PAIN OR ANY DISTRESS ON ASSESSMENT. BP ELEVATED, BP MEDS GIVEN ORDERED. DRSG TO RT HIP INTACT, NO FEVER. SAFETY MEASURES IN PLACE, CALL LIGHT LEFT WITHIN PATIENT'S REACH
[2017-12-12] MEDS ORDERED: MAGNESIUM HYDROXIDE 30 ML LIQUID UDC PO PRN (00:30)
[2017-12-12] MEDS: MAGNESIUM HYDROXIDE 30 ML LIQUID UDC PO PRN (00:51)
[2017-12-12 04:00] VITALS: BP 148/85
[2017-12-12] MEDS: BLOOD SUGAR DIAGNOSTIC 1 EACH STRIP VI SCH ×3 (06:25→16:13)
[2017-12-12 06:37] LABS: BASOPHILS # (AUTO) 0.1 K/uL (0.0-8.0); BASOPHILS % (AUTO) 0.7 % (0.0-2.0); EOSINOPHILS # (AUTO) 0.3 K/uL (0.0-0.7); EOSINOPHILS % (AUTO) 3.4 % (0.0-7.0); HEMATOCRIT 25.4 % (31.2-41.9); HEMOGLOBIN 8.8 g/dL (10.9-14.3); LYMPHOCYTES # (AUTO) 1.3 K/uL (20.0-40.0); LYMPHOCYTES % (AUTO) 17.8 % (20.5-51.5); MEAN CORPUSCULAR HEMOGLOBIN 29.9 uug (24.7-32.8); MEAN CORPUSCULAR HGB CONC 35 g/dL (32.3-35.6); MEAN CORPUSCULAR VOLUME 86.5 fL (75.5-95.3); MONOCYTES # (AUTO) 0.7 K/uL (2.0-10.0); MONOCYTES % (AUTO) 9.1 % (0.0-11.0); NEUTROPHILS # (AUTO) 5.2 K/uL (1.8-8.9); PLATELET COUNT (AUTO) 189 K/uL (179-408); RED BLOOD CELL COUNT(AUTO) 2.93 MIL/uL (3.63-4.92); WHITE BLOOD COUNT (AUTO) 7.5 K/uL (3.8-11.8)
[2017-12-12] MEDS: PANTOPRAZOLE SODIUM 40 MG TABLET.DR PO SCH (06:40)
[2017-12-12] MEDS: CLONIDINE HCL 0.2 MG TABLET PO SCH (06:40)
[2017-12-12 06:56] LABS: ALANINE AMINOTRANSFERASE 14 U/L (14-59); ALKALINE PHOSPHATASE 68 U/L (50-136); ASPARTATE AMINOTRANSFERASE 19 U/L (15-37); BILIRUBIN,TOTAL 0.5 mg/dL (0.2-1.0); CARBON DIOXIDE 29 mmol/L (21-32); CHLORIDE 104 mmol/L (98-107); CREATININE 0.9 mg/dL (0.6-1.3); GLUCOSE 90 mg/dL (74-106); PHOSPHOROUS 2.2 mg/dL (2.5-4.9); POTASSIUM 4.9 mmol/L (3.5-5.1); TOTAL PROTEIN, SERUM 5.9 g/dL (6.4-8.2); UREA NITROGEN, BLOOD 14 mg/dL (7-18)
--- NOTE | 2017-12-12 06:59 | NUR ---
PATIENT IS ASLEEP SLEPT WELL THROUGH THE SHIFT. NO C/O OF PAIN OR ACUTE DISTRESS ON THIS SHIFT. BP MANAGED PER MD ORDERS. NO FEVER ON THIS SHIFT. SAFETY MEASURES MAINTAINED AT ALL TIMES
--- NOTE | 2017-12-12 07:25 | NUR ---
pt resting comfortably in bed at this time. marks catheter dced during the microsoft systems engineer. pt in stable condition. insulin does not need to be administered this morning per sliding scale. blood pressure elevated, blood pressure will be monitored and managed. bed alarm on, fall risk. call light within reach. stable condition, no s/s of distress. will monitor throughout shift.
[2017-12-12] MEDS: CETIRIZINE HCL 10 MG TABLET PO SCH (08:16)
[2017-12-12] MEDS: DOCUSATE SODIUM 100 MG CAPSULE PO SCH (08:16)
[2017-12-12] MEDS: METFORMIN HCL 500 MG TABLET PO SCH ×2 (08:16→17:49)
[2017-12-12] MEDS: NITROFURANTOIN/NITROFURAN MAC 100 MG CAPSULE PO SCH (08:17)
[2017-12-12] MEDS: ESCITALOPRAM OXALATE 10 MG TABLET PO SCH (08:17)
[2017-12-12] MEDS: FERROUS SULFATE 325 MG TABEC PO SCH (08:17)
[2017-12-12] MEDS: CARVEDILOL 25 MG TABLET PO SCH ×2 (08:18→17:49)
[2017-12-12] MEDS: MORPHINE SULFATE 4 MG/1 ML DISP.SYRIN IV PRN (09:01)
--- NOTE | 2017-12-12 09:51 | NUR ---
participated with physical therapy. tolerated well. 50% weight bearing on right left. was able to walk with walker and assistance from physical therapist 50 feet. Addendum: 12/12/17 at 0954 by JUAN MCMAHON RN correction: 20 feet.
[2017-12-12] MEDS ORDERED: NEUTRA PHOS PACKET PO ONE (10:45)
[2017-12-12 11:28] VITALS: BP 101/59
[2017-12-12] MEDS ORDERED: MAGNESIUM HYDROXIDE 30 ML LIQUID UDC PO ONE (11:30)
[2017-12-12] MEDS ORDERED: BISACODYL 10 MG SUPP.RECT RC ONE (11:30)
[2017-12-12] MEDS: INSULIN REGULAR, HUMAN 300 UNIT/3 ML VIAL SQ PRN ×2 (11:33→16:42)
--- NOTE | 2017-12-12 13:00 | NUR ---
dulcolax suppository and milk of magnesia administered per md orders. planning for d/c today to [facility] facility.
[2017-12-12] MEDS ORDERED: SENNOSIDES 1 TABLET PO PRN (13:45)
[2017-12-12] MEDS ORDERED: BISACODYL 10 MG SUPP.RECT RC PRN (13:45)
[2017-12-12 15:24] VITALS: BP 146/80
[2017-12-12] MEDS ORDERED: INSU100V28 SQ (16:12)
[2017-12-12] MEDS ORDERED: LACT1CAP59 PO (16:12)
[2017-12-12] MEDS ORDERED: PANT40TA2 PO (16:12)
[2017-12-12] MEDS ORDERED: NITR100C11 PO (16:12)
[2017-12-12] MEDS ORDERED: FERR325T28 PO (16:12)
[2017-12-12] MEDS ORDERED: MAGN400O6 PO (16:12)
[2017-12-12] MEDS ORDERED: DOCU100C36 PO (16:12)
[2017-12-12] MEDS ORDERED: POLY15DR27 EACHEYE (16:12)
[2017-12-12] MEDS ORDERED: LEVO500T2 PO (16:12)
[2017-12-12] MEDS ORDERED: Blood Sugar Diagnostic VI (16:12)
[2017-12-12] MEDS ORDERED: BISA10SU12 RC (16:12)
[2017-12-12] MEDS ORDERED: CETI10TA14 PO (16:12)
[2017-12-12] MEDS ORDERED: HYDR-3326 PO (16:12)
[2017-12-12] MEDS ORDERED: METF500T6 PO (16:12)
[2017-12-12] MEDS ORDERED: ESCI10TA PO (16:12)
[2017-12-12] MEDS ORDERED: CLON0.2T12 PO (16:12)
[2017-12-12] MEDS ORDERED: CARV25TA2 PO (16:12)
[2017-12-12] MEDS ORDERED: ATOR40TA PO (16:12)
[2017-12-12] MEDS ORDERED: ACET325T53 PO (16:12)
[2017-12-12 17:49] VITALS: BP 148/60
--- NOTE | 2017-12-12 17:55 | NUR ---
PATIENT DISCHARGED TO [facility] AT THIS TIME IN STABLE CONDITION. REPORT GIVEN TO XI PRINCE AT [facility]. IV-DISCONNECTED. NO BARBOSA. BELONGINGS RETURNS AND CHECKLIST SIGNED. DISCHARGE INSTRUCTIONS/EDUCATION PROVIDED TO PATIENT. ID BAND TAKEN OFF. STABLE CONDITION AT DISCHARGE, VITAL SIGNS WNL FOR PATIENT. NO S/S OF DISTRESS. FORM OF TRANSPORTATION: AMBULANCE.
== END 2017-12-12 17:55 | DRG 480 ==
LOC: ER 23:37 → MED 12-07 00:58
PROVIDERS: ADMIT Nurse Practitioner Acute Care; ATTEND Internal Medicine
PROC: 0QS606Z Reposition Right Upper Femur with Intramedullary Internal Fixation Device, Open Approach (ICD-10-PCS; principal; 2017-12-08 16:41)
PROC: 30233N1 Transfusion of Nonautologous Red Blood Cells into Peripheral Vein, Percutaneous Approach (ICD-10-PCS; 2017-12-10)
DX: S72.21XA Displaced subtrochanteric fracture of right femur, initial encounter for closed fracture (principal); N17.0 Acute kidney failure with tubular necrosis; E43 Unspecified severe protein-calorie malnutrition; D69.6 Thrombocytopenia, unspecified; E83.39 Other disorders of phosphorus metabolism; E83.42 Hypomagnesemia; E11.9 Type 2 diabetes mellitus without complications; I34.0 Nonrheumatic mitral (valve) insufficiency; N39.0 Urinary tract infection, site not specified; E87.1 Hypo-osmolality and hyponatremia; D62 Acute posthemorrhagic anemia; B96.20 Unspecified Escherichia coli [E. coli] as the cause of diseases classified elsewhere; E78.5 Hyperlipidemia, unspecified; E66.9 Obesity, unspecified; F32.9 Major depressive disorder, single episode, unspecified; I25.10 Atherosclerotic heart disease of native coronary artery without angina pectoris; I51.7 Cardiomegaly; Z91.81 History of falling; Z90.49 Acquired absence of other specified parts of digestive tract; K59.00 Constipation, unspecified; K21.9 Gastro-esophageal reflux disease without esophagitis; Z88.2 Allergy status to sulfonamides; Y93.89 Activity, other specified; Y92.89 Other specified places as the place of occurrence of the external cause; D50.9 Iron deficiency anemia, unspecified; B95.2 Enterococcus as the cause of diseases classified elsewhere; I36.1 Nonrheumatic tricuspid (valve) insufficiency; Z79.84 Long term (current) use of oral hypoglycemic drugs; I10 Essential (primary) hypertension; W18.30XA Fall on same level, unspecified, initial encounter; Z96.611 Presence of right artificial shoulder joint; Z68.38 Body mass index [BMI] 38.0-38.9, adult
CPT/HCPCS: 36415; 70030-TC; 71045; 73502; 73503; 73551; 73610; 83550; 83735; 84100; 84443; 85025; 85730; 86850; 86900; 86901; 86920; 87040; 87077; 87086; 93005; 93307; 97110; 97116; 97530; A4649; A4663; J0690; J0696; J1170; J1815; J1956; J2185; J2270; J2370; J2405; J3010; J3475; J3490; J7030; J7050; J7060; J7120; P9016-BL; P9021

== ENCOUNTER 2019-05-23 21:33 | Inpatient (IN) | payer MEDICARE ==
[~2019-05-23] VITALS: Ht 162.6 cm; Wt 80.0 kg
[~2019-05-23 21:33] MED LIST: ACET325T53 PO; ATOR40TA PO; BISA10SU12 RC; Blood Sugar Diagnostic VI; CARV25TA2 PO; CETI10TA14 PO; CLON0.2T12 PO; DOCU100C36 PO; ESCI10TA PO; FERR325T28 PO; HYDR-3326 PO; INSU100V28 SQ; LACT1CAP59 PO; LEVO500T2 PO; MAGN400O6 PO; METF-440 PO; NIFE60TA69 PO; NITR100C11 PO; PANT40TA2 PO; POLY15DR27 EACHEYE; VALS160T2 PO
--- NOTE | 2019-05-23 21:44 | NUR ---
PATIENT BIB [facility] FROM HOME FOR TRIP AND FALL 30 MINUTES PRIOR TO ARRIVAL, C/O RIGHT KNEE PAIN, DID NOT LOOSE CONSCIOUSNESS, DID NOT HIT HEAD, NO OTHER C/O PAIN.
--- NOTE | 2019-05-23 21:49 | NUR ---
DR. WINCHESTER AT BEDSIDE FOR MSE.
[2019-05-23] MEDS ORDERED: HYDROCODONE/APAP 5-325MG TABLET ONE (21:59)
[2019-05-23] MEDS ORDERED: ONDANSETRON ODT 4 MG TAB.RAPDIS ONE (21:59)
--- NOTE | 2019-05-23 21:59 | NUR ---
PATIENT STATES TYHAT SHE HAS NOT TAKING HER NIGHT TIME BLOOD PRESSURE MEDICATION FOR TONIGHT, VERIFIED WITH YAEL KEE FOR PATIENT TO TAKE HOME MEDICATIONS AT THIS TIME.
[2019-05-23] MEDS ORDERED: ONDANSETRON ODT 4 MG TAB.RAPDIS SL ONE (22:00)
[2019-05-23] MEDS ORDERED: HYDROCODONE/APAP 5-325MG TABLET PO ONE (22:00)
--- NOTE | 2019-05-23 23:11 | NUR ---
DR. DIAZ ORTHO SPEAKING WITH DR. WINCHESTER AT THIS TIME.
[2019-05-23] MEDS ORDERED: ESCI20TA37 PO (23:13)
[2019-05-23] MEDS ORDERED: TRAM50TA2 PO (23:13)
[2019-05-23] MEDS ORDERED: ESOM40CA PO (23:13)
[2019-05-23] MEDS ORDERED: CLON0.2T PO (23:13)
[2019-05-23] MEDS ORDERED: ROSU20TA2 PO (23:13)
[2019-05-23] MEDS ORDERED: PIOG45TA5 PO (23:13)
--- NOTE | 2019-05-23 23:22 | NUR ---
DR. PERDUE PAGED, AWAITING CALL BACK.
[2019-05-23] MEDS ORDERED: MORPHINE SULFATE 2 MG/1 ML DISP.SYRIN IV ONE (23:45)
[2019-05-23] MEDS ORDERED: ONDANSETRON 4 MG/2 ML VIAL IV ONE (23:45)
[2019-05-23] MEDS ORDERED: MORPHINE SULFATE 2 MG/1 ML DISP.SYRIN ONE (23:52)
[2019-05-23] MEDS ORDERED: ONDANSETRON 4 MG/2 ML VIAL ONE (23:52)
--- NOTE | 2019-05-23 23:52 | NUR ---
DR. PERDUE CALLED BACK.
[2019-05-23 23:55] LABS: BASOPHILS % (AUTO) 0.3 % (0.0-2.0); EOSINOPHILS # (AUTO) 0.3 K/uL (0.0-0.7); HEMATOCRIT 39.7 % (31.2-41.9); HEMOGLOBIN 12.9 g/dL (10.9-14.3); LYMPHOCYTES # (AUTO) 1.2 K/uL (20.0-40.0); MEAN CORPUSCULAR HEMOGLOBIN 28.8 uug (24.7-32.8); MEAN CORPUSCULAR HGB CONC 33 g/dL (32.3-35.6); MEAN CORPUSCULAR VOLUME 88.8 fL (75.5-95.3); MONOCYTES # (AUTO) 0.5 K/uL (2.0-10.0); MONOCYTES % (AUTO) 6.3 % (0.0-11.0); NEUTROPHILS # (AUTO) 5.3 K/uL (1.8-8.9); NEUTROPHILS % (AUTO) 73.4 % (38.5-71.5); PLATELET COUNT (AUTO) 165 K/uL (179-408); RED BLOOD CELL COUNT(AUTO) 4.47 MIL/uL (3.63-4.92); WHITE BLOOD COUNT (AUTO) 7.2 K/uL (3.8-11.8)
[2019-05-24] MEDS ORDERED: TRAMADOL HCL 50 MG TABLET PO PRN
[2019-05-24] MEDS ORDERED: DEXTROSE 50% 50 ML DISP.SYRIN IV PRN
[2019-05-24 00:04] LABS: CREATININE 1.2 mg/dL (0.6-1.3); POTASSIUM 5.1 mmol/L (3.5-5.1)
[2019-05-24] MEDS ORDERED: HYDROCODONE/APAP 5-325MG TABLET PO PRN ×2 (00:15→07:30)
[2019-05-24] MEDS ORDERED: Z GUARD REMEDY PASTE 57 GM TUBE TOP PRN (00:15)
[2019-05-24] MEDS ORDERED: ONDANSETRON 4 MG/2 ML VIAL IV PRN (00:15)
[2019-05-24] MEDS ORDERED: MAGNESIUM HYDROXIDE 30 ML LIQUID UDC PO PRN (00:15)
--- NOTE | 2019-05-24 00:15 | NUR ---
PATIENT BACK FROM CT.
[2019-05-24] MEDS ORDERED: LABETALOL HCL 100 MG/20 ML VIAL IV ONE (00:30)
[2019-05-24] MEDS: CLONIDINE HCL 0.2 MG TABLET PO SCH ×4 (00:30→16:24)
[2019-05-24] MEDS ORDERED: hydrALAZINE HCL 25 MG TABLET PO PRN (00:30)
[2019-05-24] MEDS ORDERED: LABETALOL HCL 100 MG/20 ML VIAL ONE (00:34)
--- NOTE | 2019-05-24 00:46 | NUR ---
Pt. admitted to [facility] , under care of Dr. PERDUE Belongs List completed.
--- NOTE | 2019-05-24 01:15 | NUR ---
Patient is a 74 year old female admitted from emergency department to Med/Surg with diagnosis of right tib/fib fracture. Patient stable when transferred. Knee immobilizer in tact. Admission protocols in place. Immediate needs attended. Catapres held; in reference to ED nurse's note patient took Catapres in the ER. Safety protocols in place. Will continue to monitor patient.
[2019-05-24 01:19] VITALS: BP 152/71
[2019-05-24] MEDS: IV D5 1/2 NS 1000 ML 1,000 ML IV PRN ×2 (01:36→14:01)
[2019-05-24 03:17] LABS: *BILIRUBIN,URIN NEGATIVE (NEGATIVE); *BLOOD, URINE 2+ (NEGATIVE); *COLOR,URINE YELLOW (YELLOW); *KETONES,URINE NEGATIVE (NEGATIVE); *UROBILINOGEN,URINE 0.2 E.U./dl (NORMAL); LEUKOCYTE ESTERASE ,URINE 3+ (NEGATIVE); NITRITE, URINE POSITIVE (NEGATIVE); UGLUCOSE NEGATIVE (NEGATIVE)
[2019-05-24 03:23] LABS: *CLARITY,URINE HAZY (CLEAR)
[2019-05-24 03:24] LABS: BACTERIA,URINE MANY /HPF (NONE SEEN); SQUAMOUS EPITHELIAL CELL,UR MODERATE /HPF (NONE SEEN); WBC,URINE 20-50 /HPF (0-3)
[2019-05-24 05:06] VITALS: BP 169/81
[2019-05-24] MEDS: MORPHINE SULFATE 2 MG/1 ML DISP.SYRIN IV PRN ×3 (05:21→15:59)
[2019-05-24] MEDS: PANTOPRAZOLE SODIUM 40 MG TABLET.DR PO SCH (06:33)
[2019-05-24] MEDS: BLOOD SUGAR DIAGNOSTIC 1 EACH STRIP VI SCH ×4 (06:38→20:48)
--- NOTE | 2019-05-24 07:00 | NUR ---
Patient slept intermittently throughout the night. Complaints of pain in rt. knee, morphine given for pain. Patient states still in despite morphine given about 2 hours ago. Will endorse to oncoming nurse. Patient also recently states she did not take blood sugar pill last night. Will endorse to oncoming shift.
--- NOTE | 2019-05-24 07:49 | NUR ---
Systolic BP in the 200s, catapres 0.2 given. Will endorse to oncoming shift
--- NOTE | 2019-05-24 07:54 | NUR ---
AWAKE ALERT ASSYMPTOMATIC AT THIS TIME RELATED TO ELEVATED BLOOD PRESSURE TELE IS SR REMAIN NPO ORDERED RIGHT LEG WITH IMMOBILIZER INTACT WITH ADEQUATE CIRCULATION AT THIS TIME CALL LIGHTS AND PERSONAL BELONGINGS ARE WITHIN EASY REACH MADE COMFORTABLE AND WILL CONTINUE TO OBSERVE.
[2019-05-24] MEDS: INSULIN REGULAR, HUMAN 300 UNIT/3 ML VIAL SQ PRN ×3 (07:55→16:35)
[2019-05-24] MEDS ORDERED: Medication Not On Formulary EA (Esomeprazole Mag Trihydrate (Nexium) 40 MG) PO SCH (09:00)
[2019-05-24] MEDS ORDERED: CLONIDINE HCL 0.2 MG TABLET PO SCH (09:00)
[2019-05-24] MEDS ORDERED: Medication Not On Formulary EA (Rosuvastatin Calcium (Crestor) 20 MG) PO SCH (09:00)
[2019-05-24] MEDS: ESCITALOPRAM OXALATE 10 MG TABLET PO SCH (09:04)
[2019-05-24] MEDS: CARVEDILOL 25 MG TABLET PO SCH ×2 (09:07→17:34)
--- NOTE | 2019-05-24 10:33 | NUR ---
NEW ORDERS NOTED FROM JEFFREY CHRISTIANSON TO START PATIENT ON ATB FOR UTI AND NOTED
--- NOTE | 2019-05-24 11:08 | NUR ---
PATIENT SEEN AND EXAMINED BY JEFFREY AND STATED THAT IF THE ORTHO HAS NOT BEEN HERE TO VISIT PATIENT AND MAKE DECISION ABOUT SURGERY BY DINNER TIME THEN PATIENT SHOULD EAT DINNER AND THEN START NPO AFTER MID NITE AND NOTED
[2019-05-24 11:44] VITALS: BP 191/68
[2019-05-24] MEDS: CEFTRIAXONE 1 G in IV DEXTROSE 5% 50 ML IV SCH (11:50)
[2019-05-24] MEDS: hydrALAZINE HCL 25 MG TABLET PO PRN (11:50)
[2019-05-24 16:00] VITALS: BP 131/62
--- NOTE | 2019-05-24 17:36 | NUR ---
PATIENT TOLERATED DINNER ORDERED WILL PLACE HER BACK ON NPO AFTER AWAITING FOR DR DIAZ TO SEE PATIENT.HE WAS CALLED BY THE MARKETING ANALYTICS ANALYST AND HE STATED WILL BE HERE TODAY OR TOMORROW MORNING.
[2019-05-24 20:35] VITALS: BP 147/73
[2019-05-24] MEDS: ATORVASTATIN 40 MG TABLET PO SCH (20:47)
[2019-05-24] MEDS: INSULIN REGULAR, HUMAN 300 UNITS/3 ML VIAL SQ PRN (20:49)
--- NOTE | 2019-05-24 23:01 | NUR ---
RECEIVED PT AWAKE, ALERT AND ORIENTEDX4. PT SHOWS NO SIGNS OF ACUTE DISTRESS. FAMILY AT BEDSIDE. PT IV INTACT. BARBOSA INTACT. SAFETY AND COMFORT PROVIDED. WILL CONTINUE TO MONITOR.
[2019-05-25] MEDS: MORPHINE SULFATE 2 MG/1 ML DISP.SYRIN IV PRN ×2 (01:05→06:58)
[2019-05-25] MEDS: CLONIDINE HCL 0.2 MG TABLET PO SCH ×3 (04:48→17:59)
[2019-05-25] MEDS: IV D5 1/2 NS 1000 ML 1,000 ML IV PRN ×3 (04:51→21:02)
[2019-05-25] MEDS: ACETAMINOPHEN 325 MG TABLET PO PRN (05:51)
[2019-05-25] MEDS: hydrALAZINE HCL 25 MG TABLET PO PRN (05:52)
[2019-05-25 05:53] VITALS: BP 195/99
[2019-05-25] MEDS: PANTOPRAZOLE SODIUM 40 MG TABLET.DR PO SCH (06:54)
[2019-05-25] MEDS: BLOOD SUGAR DIAGNOSTIC 1 EACH STRIP VI SCH ×4 (06:57→20:54)
[2019-05-25 07:04] VITALS: BP 137/58
[2019-05-25 07:04] LABS: CARBON DIOXIDE 26 mmol/L (21-32); CHLORIDE 102 mmol/L (98-107); CREATININE 1.1 mg/dL (0.6-1.3); GLUCOSE 216 mg/dL (74-106); MAGNESIUM 1.6 mg/dL (1.8-2.4); PHOSPHOROUS 3.3 mg/dL (2.5-4.9); POTASSIUM 4.7 mmol/L (3.5-5.1); UREA NITROGEN, BLOOD 14 mg/dL (7-18)
--- NOTE | 2019-05-25 07:13 | NUR ---
PT SLEPT INTERMITTENTLY. PT SHOWS NO SIGNS OF ACUTE DISTRESS. IV INTACT. BARBOSA INTACT. PRESCRIBED MEDICATION GIVEN AND PT TOLERATED IT WELL. BP MEDICATIONS GIVEN. CATAPRESS, HYDRALAZINE GIVEN. BP NOW IS 137/58. PULSE 58. MORPHINE GIVEN FOR PAIN. PT TOLERATED IT WELL. DR MARCOS AWARE OF THE BP OF THE PT. PT AFEBRILE. SAFETY AND COMFORT PROVIDED. ALL NEEDS ARE MET.WILL ENDORSE TO INCOMING NURSE FOR CONTINUITY OF CARE.
[2019-05-25 07:15] LABS: BASOPHILS % (AUTO) 0.2 % (0.0-2.0); EOSINOPHILS # (AUTO) 0.1 K/uL (0.0-0.7); EOSINOPHILS % (AUTO) 1.7 % (0.0-7.0); HEMATOCRIT 36.8 % (31.2-41.9); HEMOGLOBIN 11.9 g/dL (10.9-14.3); LYMPHOCYTES # (AUTO) 0.8 K/uL (20.0-40.0); LYMPHOCYTES % (AUTO) 11.1 % (20.5-51.5); MEAN CORPUSCULAR HEMOGLOBIN 29.4 uug (24.7-32.8); MEAN CORPUSCULAR HGB CONC 32 g/dL (32.3-35.6); MEAN CORPUSCULAR VOLUME 90.8 fL (75.5-95.3); MONOCYTES # (AUTO) 0.8 K/uL (2.0-10.0); MONOCYTES % (AUTO) 11.1 % (0.0-11.0); NEUTROPHILS # (AUTO) 5.7 K/uL (1.8-8.9); NEUTROPHILS % (AUTO) 75.9 % (38.5-71.5); PLATELET COUNT (AUTO) 144 K/uL (179-408); RED BLOOD CELL COUNT(AUTO) 4.06 MIL/uL (3.63-4.92); WHITE BLOOD COUNT (AUTO) 7.6 K/uL (3.8-11.8)
--- NOTE | 2019-05-25 09:10 | NUR ---
Report received from endorsing nurse; patient calm and comfortable with no signs of distress; patient will continue to be monitored.
[2019-05-25] MEDS: ESCITALOPRAM OXALATE 10 MG TABLET PO SCH (09:44)
[2019-05-25] MEDS: CARVEDILOL 25 MG TABLET PO SCH ×2 (09:45→17:59)
[2019-05-25] MEDS: INSULIN REGULAR, HUMAN 300 UNIT/3 ML VIAL SQ PRN ×3 (09:49→16:52)
[2019-05-25 11:17] VITALS: BP 123/55
[2019-05-25] MEDS: CEFTRIAXONE 1 G in IV DEXTROSE 5% 50 ML IV SCH (12:39)
[2019-05-25] MEDS: MAGNESIUM SULFATE/D5W 100 ML IV SCH ×2 (14:08→16:43)
[2019-05-25] MEDS: VALSARTAN 40 MG TABLET PO SCH (14:10)
[2019-05-25 15:14] VITALS: BP 195/81
--- NOTE | 2019-05-25 18:45 | NUR ---
Patient calm and comfortable through out shift; patient will have surgery at 12am rafia ; Patient medication compliant; patient to be kept NPO past midnight ; Report given to oncoming nurse.
[2019-05-25 20:00] VITALS: BP 152/62
[2019-05-25] MEDS: ATORVASTATIN 40 MG TABLET PO SCH (20:51)
[2019-05-25] MEDS: INSULIN REGULAR, HUMAN 300 UNITS/3 ML VIAL SQ PRN (20:57)
[2019-05-26] MEDS: MORPHINE SULFATE 2 MG/1 ML DISP.SYRIN IV PRN (03:35)
[2019-05-26 05:58] VITALS: BP 181/73
[2019-05-26] MEDS: PANTOPRAZOLE SODIUM 40 MG TABLET.DR PO SCH (06:00)
[2019-05-26] MEDS: hydrALAZINE HCL 25 MG TABLET PO PRN (06:00)
[2019-05-26] MEDS: ACETAMINOPHEN 325 MG TABLET PO PRN (06:09)
[2019-05-26] MEDS: BLOOD SUGAR DIAGNOSTIC 1 EACH STRIP VI SCH ×4 (06:36→21:21)
--- NOTE | 2019-05-26 06:50 | NUR ---
patient kept comfortable, pain managed, consent in chart, report given to surgery nurse and oncoming morning shift nurse. patient is NPO since midnight. had episode of high bp, hydralazine given PRN. no acute changes
[2019-05-26 07:01] LABS: BASOPHILS % (AUTO) 0.3 % (0.0-2.0); EOSINOPHILS # (AUTO) 0.3 K/uL (0.0-0.7); EOSINOPHILS % (AUTO) 5.3 % (0.0-7.0); HEMOGLOBIN 11.5 g/dL (10.9-14.3); LYMPHOCYTES # (AUTO) 1.3 K/uL (20.0-40.0); LYMPHOCYTES % (AUTO) 20.4 % (20.5-51.5); MEAN CORPUSCULAR HEMOGLOBIN 29.3 uug (24.7-32.8); MEAN CORPUSCULAR HGB CONC 33 g/dL (32.3-35.6); MONOCYTES # (AUTO) 0.6 K/uL (2.0-10.0); MONOCYTES % (AUTO) 10.2 % (0.0-11.0); NEUTROPHILS # (AUTO) 4.1 K/uL (1.8-8.9); NEUTROPHILS % (AUTO) 63.8 % (38.5-71.5); PLATELET COUNT (AUTO) 144 K/uL (179-408); RED BLOOD CELL COUNT(AUTO) 3.93 MIL/uL (3.63-4.92); WHITE BLOOD COUNT (AUTO) 6.4 K/uL (3.8-11.8)
[2019-05-26 07:07] LABS: CARBON DIOXIDE 29 mmol/L (21-32); CHLORIDE 105 mmol/L (98-107); GLUCOSE 178 mg/dL (74-106); MAGNESIUM 2.1 mg/dL (1.8-2.4); POTASSIUM 4.7 mmol/L (3.5-5.1); UREA NITROGEN, BLOOD 13 mg/dL (7-18)
--- NOTE | 2019-05-26 07:30 | NUR ---
Patient calm and comfortable with no signs of distress; patient medication compliant ; patient will be kept NPO status for am surgical procedure.
[2019-05-26] MEDS: CARVEDILOL 25 MG TABLET PO SCH ×2 (08:04→17:06)
[2019-05-26] MEDS: VALSARTAN 40 MG TABLET PO SCH (08:05)
[2019-05-26] MEDS: ESCITALOPRAM OXALATE 10 MG TABLET PO SCH (08:05)
[2019-05-26] MEDS: CLONIDINE HCL 0.2 MG TABLET PO SCH ×3 (08:05→17:06)
[2019-05-26] MEDS: INSULIN REGULAR, HUMAN 300 UNIT/3 ML VIAL SQ PRN ×2 (08:07→17:11)
[2019-05-26] MEDS ORDERED: POLYMYXIN B SULFATE 500,000 UNITS, BACITRACIN 50,000 UNITS, NORMAL SALINE 20 ML MC ONE ×3 (10:00)
--- NOTE | 2019-05-26 10:30 | NUR ---
Patient taken to surgery in stable condition; all surgical consents signed.
[2019-05-26] MEDS ORDERED: HYDROMORPHONE 2 MG/1 ML DISP.SYRIN ONE (11:05)
[2019-05-26] MEDS ORDERED: BUPIVACAINE PF 0.5% 30 ML VIAL ONE (11:11)
[2019-05-26] MEDS: CEFTRIAXONE 1 G in IV DEXTROSE 5% 50 ML IV SCH (11:30)
[2019-05-26] MEDS ORDERED: LABETALOL HCL 100 MG/20 ML VIAL ONE (13:19)
[2019-05-26] MEDS ORDERED: FENTANYL CITRATE 100 MCG/2 ML AMPUL ONE (13:27)
[2019-05-26] MEDS ORDERED: hydrALAZINE HCL 20 MG/1 ML VIAL ONE (13:35)
[2019-05-26 15:05] VITALS: BP 165/68
[2019-05-26 15:20] VITALS: BP 157/57
[2019-05-26 15:35] VITALS: BP 123/100
[2019-05-26 15:50] VITALS: BP 151/75
[2019-05-26] MEDS: IV D5 1/2 NS 1000 ML 1,000 ML IV PRN (17:09)
--- NOTE | 2019-05-26 19:09 | NUR ---
Patient calm and cooperative during shift; patient came back from surgery in stable condition; Rocephin due at 11:30 was given to surgery nurse prior to surgery and was given during surgery ( see patient chart ) . Patient with no signs of distress; and medication compliant.
--- NOTE | 2019-05-26 19:44 | NUR ---
Patient calm and cooperative during shift; patient back from surgery in stable condition; orders were placed for regular diet and pt evaluation. Report given to oncoming nurse.
[2019-05-26] MEDS: CEFAZOLIN 2 G in IV DEXTROSE 5% 100 ML IV SCH (19:46)
[2019-05-26 20:00] VITALS: BP 97/41
[2019-05-26] MEDS: ATORVASTATIN 40 MG TABLET PO SCH (21:14)
[2019-05-26] MEDS: ENOXAPARIN SODIUM 40 MG/0.4 ML DISP.SYRIN SQ SCH (21:17)
[2019-05-26] MEDS: INSULIN REGULAR, HUMAN 300 UNITS/3 ML VIAL SQ PRN (21:32)
[2019-05-27] MEDS: CEFAZOLIN 2 G in IV DEXTROSE 5% 100 ML IV SCH (03:13)
[2019-05-27 04:00] VITALS: BP 150/77
[2019-05-27] MEDS: IV D5 1/2 NS 1000 ML 1,000 ML IV PRN ×2 (05:52→19:32)
[2019-05-27] MEDS: PANTOPRAZOLE SODIUM 40 MG TABLET.DR PO SCH (06:12)
[2019-05-27] MEDS: MORPHINE SULFATE 2 MG/1 ML DISP.SYRIN IV PRN ×4 (06:17→21:43)
--- NOTE | 2019-05-27 06:20 | NUR ---
patient received lying in bed watching tv. no signs of acute distress and v/s stable throughout shift. dvt pump on left leg my shift. safety and comfort measures provided at all times. education provided for incentive spirometer and patient verbalized understanding. Parkinson catheter patent and intact. morphine administered once for c/o of pain and tolerated well. all medications administered and tolerated well.
[2019-05-27] MEDS: BLOOD SUGAR DIAGNOSTIC 1 EACH STRIP VI SCH ×4 (06:34→20:09)
--- NOTE | 2019-05-27 07:00 | NUR ---
Received patient in Bed, awake, alert and verbally responsive. No signs of distress noted. On Oxygen at 3LPM via Nasal canula. NO complain of Pain at this time. Kept clean and comfortable. kept the call light within easy reach. Will continue to monitor.
[2019-05-27 07:09] LABS: CARBON DIOXIDE 28 mmol/L (21-32); CHLORIDE 103 mmol/L (98-107); CREATININE 1.1 mg/dL (0.6-1.3); GLUCOSE 192 mg/dL (74-106); POTASSIUM 5.1 mmol/L (3.5-5.1); UREA NITROGEN, BLOOD 17 mg/dL (7-18)
[2019-05-27 07:10] LABS: BASOPHILS % (AUTO) 0.2 % (0.0-2.0); EOSINOPHILS % (AUTO) 0.1 % (0.0-7.0); LYMPHOCYTES # (AUTO) 0.6 K/uL (20.0-40.0); MONOCYTES # (AUTO) 0.8 K/uL (2.0-10.0)
[2019-05-27 07:22] LABS: HEMATOCRIT 32.6 % (31.2-41.9); HEMOGLOBIN 10.7 g/dL (10.9-14.3); LYMPHOCYTES % (AUTO) 7.1 % (20.5-51.5); MEAN CORPUSCULAR HEMOGLOBIN 29.8 uug (24.7-32.8); MEAN CORPUSCULAR HGB CONC 33 g/dL (32.3-35.6); MEAN CORPUSCULAR VOLUME 90.6 fL (75.5-95.3); MONOCYTES % (AUTO) 9.9 % (0.0-11.0); NEUTROPHILS # (AUTO) 6.8 K/uL (1.8-8.9); NEUTROPHILS % (AUTO) 82.7 % (38.5-71.5); PLATELET COUNT (AUTO) 144 K/uL (179-408); RED BLOOD CELL COUNT(AUTO) 3.59 MIL/uL (3.63-4.92)
[2019-05-27 07:26] LABS: WHITE BLOOD COUNT (AUTO) 8.2 K/uL (3.8-11.8)
[2019-05-27] MEDS: CARVEDILOL 25 MG TABLET PO SCH ×2 (07:52→17:53)
[2019-05-27] MEDS: INSULIN REGULAR, HUMAN 300 UNIT/3 ML VIAL SQ PRN ×3 (07:55→17:21)
[2019-05-27] MEDS: CLONIDINE HCL 0.2 MG TABLET PO SCH ×3 (09:09→17:18)
[2019-05-27] MEDS: ESCITALOPRAM OXALATE 10 MG TABLET PO SCH (09:09)
[2019-05-27] MEDS: VALSARTAN 40 MG TABLET PO SCH (09:09)
[2019-05-27 11:36] VITALS: BP 110/59
[2019-05-27] MEDS: CEphaleXIN 500 MG CAPSULE PO SCH ×2 (13:45→21:43)
[2019-05-27 15:28] VITALS: BP 143/59
--- NOTE | 2019-05-27 18:45 | NUR ---
Patient in Bed, awake, alert and verbally responsive. No signs of Distress noted. Pain medication given as ordered. PT/OT as Ordered. BS check ACHS, latest Blood Sugar is 192, 3 units insulin given as ordered per sliding scale. No signs of Hyper/Hypoglycemia. All needs attended and met. kept clean and comfortable. Will Endorse to Oncoming Nurse.
[2019-05-27 19:45] VITALS: BP 115/55
[2019-05-27] MEDS: ATORVASTATIN 40 MG TABLET PO SCH (20:02)
[2019-05-27] MEDS: ENOXAPARIN SODIUM 40 MG/0.4 ML DISP.SYRIN SQ SCH (20:04)
[2019-05-27] MEDS: INSULIN REGULAR, HUMAN 300 UNITS/3 ML VIAL SQ PRN (20:05)
[2019-05-28 04:45] VITALS: BP 135/67
[2019-05-28] MEDS: IV D5 1/2 NS 1000 ML 1,000 ML IV PRN ×2 (05:30→17:43)
[2019-05-28] MEDS: CEphaleXIN 500 MG CAPSULE PO SCH ×3 (05:30→21:30)
--- NOTE | 2019-05-28 05:35 | NUR ---
patient received in bed with daughter at bedside. slept intermittently throughout the night. no signs of acute distress and v/s stable throughout shift. safety and comfort measures provided at all times. DVT pump on left leg on my shift. Parkinson catheter patent and intact. IVF running. Lovenox barcode not scanning, administered with PLT, WNL. will continue plan of care and endorse to morning nurse accordingly.
[2019-05-28] MEDS: PANTOPRAZOLE SODIUM 40 MG TABLET.DR PO SCH (06:41)
[2019-05-28] MEDS: BLOOD SUGAR DIAGNOSTIC 1 EACH STRIP VI SCH ×4 (06:42→21:44)
--- NOTE | 2019-05-28 07:15 | NUR ---
Received patient in Bed, awake and verbally responsive. No signs of distress noted. No complain of Pain at this time, will give Pain medication prior PT Exercise. All needs attended and met. Will continue to monitor.
[2019-05-28] MEDS: CARVEDILOL 25 MG TABLET PO SCH ×2 (07:41→17:37)
[2019-05-28] MEDS: INSULIN REGULAR, HUMAN 300 UNIT/3 ML VIAL SQ PRN ×3 (07:52→16:55)
[2019-05-28] MEDS: VALSARTAN 40 MG TABLET PO SCH (08:37)
[2019-05-28] MEDS: CLONIDINE HCL 0.2 MG TABLET PO SCH ×3 (08:37→16:52)
[2019-05-28] MEDS: ESCITALOPRAM OXALATE 10 MG TABLET PO SCH (08:37)
[2019-05-28] MEDS: MORPHINE SULFATE 2 MG/1 ML DISP.SYRIN IV PRN (08:58)
[2019-05-28] MEDS ORDERED: VALS40TA4 PO (10:10)
[2019-05-28] MEDS ORDERED: CEPH500C2 PO (10:10)
[2019-05-28] MEDS ORDERED: ENOX40DI SQ (10:10)
--- NOTE | 2019-05-28 10:43 | NUR ---
Discharge Order is Pending due to Insurance Authorization per case reviewer. Patient is aware.
[2019-05-28 11:40] VITALS: BP 108/33
[2019-05-28 15:51] VITALS: BP 139/59
--- NOTE | 2019-05-28 18:22 | NUR ---
Patient in Bed, awake and verbally responsive. No signs of distress noted. On Oxygen at 2LPM via nasal canula. Pain Medication given as ordered. No sign of Hyper/Hypoglycemia, last Blood sugar is 224, 6 units insulin is given per sliding Scale. All due medications given as ordered. MOM given for Constipation. Kept Clean and comfortable. Will Endorse to Oncoming Nurse.
[2019-05-28 19:47] VITALS: BP 145/71
[2019-05-28] MEDS: ATORVASTATIN 40 MG TABLET PO SCH (21:30)
[2019-05-28] MEDS: ENOXAPARIN SODIUM 40 MG/0.4 ML DISP.SYRIN SQ SCH (21:38)
[2019-05-28] MEDS: INSULIN REGULAR, HUMAN 300 UNITS/3 ML VIAL SQ PRN (21:46)
[2019-05-29 05:11] VITALS: BP 157/73
[2019-05-29] MEDS: CEphaleXIN 500 MG CAPSULE PO SCH ×3 (06:56→21:04)
[2019-05-29] MEDS: PANTOPRAZOLE SODIUM 40 MG TABLET.DR PO SCH (06:56)
[2019-05-29] MEDS: IV D5 1/2 NS 1000 ML 1,000 ML IV PRN ×2 (06:56→19:56)
[2019-05-29] MEDS: BLOOD SUGAR DIAGNOSTIC 1 EACH STRIP VI SCH ×4 (07:27→21:35)
--- NOTE | 2019-05-29 07:30 | NUR ---
Patient calm and comfortable with no signs of distress; patient will continue to be monitored.
[2019-05-29] MEDS: CLONIDINE HCL 0.2 MG TABLET PO SCH ×3 (08:18→17:05)
[2019-05-29] MEDS: CARVEDILOL 25 MG TABLET PO SCH ×2 (08:18→17:06)
[2019-05-29] MEDS: VALSARTAN 40 MG TABLET PO SCH (08:19)
[2019-05-29] MEDS: ESCITALOPRAM OXALATE 10 MG TABLET PO SCH (08:22)
[2019-05-29] MEDS: INSULIN REGULAR, HUMAN 300 UNIT/3 ML VIAL SQ PRN ×3 (08:23→17:05)
[2019-05-29 11:28] VITALS: BP 136/55
[2019-05-29 15:45] VITALS: BP 133/62
--- NOTE | 2019-05-29 18:55 | NUR ---
Patient calm and comfortable through out shift; blood pressure managed wit medication; patient medication compliant. Patient at baseline mental status. Report will be given to oncoming nurse.
[2019-05-29 19:57] VITALS: BP 134/68
[2019-05-29] MEDS: ATORVASTATIN 40 MG TABLET PO SCH (21:04)
[2019-05-29] MEDS: ENOXAPARIN SODIUM 40 MG/0.4 ML DISP.SYRIN SQ SCH (21:08)
[2019-05-29] MEDS: INSULIN REGULAR, HUMAN 300 UNITS/3 ML VIAL SQ PRN (21:39)
[2019-05-29] MEDS: ACETAMINOPHEN 325 MG TABLET PO PRN (21:54)
--- NOTE | 2019-05-30 02:35 | NUR ---
HANDS OFF REPORT RECEIVED FROM AYDEN JORGE . PT IN NO ACUTE DISTRESS. SAFETY AND COMFORT PROVIDED. WILL CONTINUE TO MONITOR.
[2019-05-30 04:42] VITALS: BP 154/70
[2019-05-30] MEDS: CEphaleXIN 500 MG CAPSULE PO SCH ×2 (05:55→13:48)
[2019-05-30] MEDS: PANTOPRAZOLE SODIUM 40 MG TABLET.DR PO SCH (06:00)
[2019-05-30] MEDS: BLOOD SUGAR DIAGNOSTIC 1 EACH STRIP VI SCH ×2 (06:34→11:32)
--- NOTE | 2019-05-30 06:43 | NUR ---
PT SLEPT INTERMITTENTLY. PT SHOWS NO SIGNS OF ACUTE DISTRESS. PRESCRIBED MEDICATION GIVEN AND PT TOLERATED IT WELL. SAFETY AND COMFORT PROVIDED. WILL ENDORSE TO INCOMING NURSE FOR CONTINUITY OF CARE.
--- NOTE | 2019-05-30 07:10 | NUR ---
RECEIVED PATIENT AWAKE AND ALERT IN BED. NO ACUTE DISTRESS NOTED, PATIENT DENIES PAIN AND DISCOMFORT. BED IN LOWEST POSITION, SIDE RAILS UP X2, CALL LIGHT WITHIN REACH. WILL CONTINUE TO MONITOR.
[2019-05-30] MEDS: CARVEDILOL 25 MG TABLET PO SCH (08:14)
[2019-05-30] MEDS: CLONIDINE HCL 0.2 MG TABLET PO SCH ×2 (08:15→12:38)
[2019-05-30] MEDS: VALSARTAN 40 MG TABLET PO SCH (08:15)
[2019-05-30] MEDS: ESCITALOPRAM OXALATE 10 MG TABLET PO SCH (08:15)
[2019-05-30] MEDS: INSULIN REGULAR, HUMAN 300 UNIT/3 ML VIAL SQ PRN ×2 (08:17→12:38)
[2019-05-30] MEDS: MORPHINE SULFATE 2 MG/1 ML DISP.SYRIN IV PRN (11:22)
[2019-05-30 11:30] VITALS: BP 152/69
--- NOTE | 2019-05-30 14:15 | NUR ---
PATIENT DISCHARGED TO [facility]. SPOKE TO NURSE CHAVA RECEIVING PATIENT. PATIENT LEFT IN AMBULANCE WITH NO COMPLICATIONS.
[2019-05-30 16:00] VITALS: BP 154/68
[2019-05-30 16:12] VITALS: BP 186/78
[2019-05-30] MEDS: hydrALAZINE HCL 25 MG TABLET PO PRN (16:12)
[2019-05-30] MEDS ORDERED: PROPOFOL 200 MG/20 ML BOTTLE IV ONE (16:44)
[2019-05-30] MEDS ORDERED: EPHEDRINE SULFATE 50 MG/ML AMPUL IM ONE (16:44)
[2019-05-30] MEDS ORDERED: CEFAZOLIN 1 G VIAL IM ONE (16:44)
[2019-05-30] MEDS ORDERED: GLYCOPYRROLATE 0.2 MG/ML VIAL IJ ONE (16:44)
[2019-05-30] MEDS ORDERED: SEVOFLURANE 250 ML BOTTLE IH ONE (16:44)
[2019-05-30] MEDS ORDERED: IV LACTATED RINGERS SOLUTION 1,000 ML BAG MC ONE (16:44)
[2019-05-30] MEDS ORDERED: ONDANSETRON 4 MG/2 ML VIAL IV ONE (16:44)
[2019-05-30] MEDS ORDERED: LIDOCAINE-MPF 2% 5 ML VIAL IJ ONE (16:44)
[2019-05-30] MEDS ORDERED: DEXAMETHASONE SOD PHOSPHATE 4 MG INJ IV ONE (16:44)
== END 2019-05-30 16:45 | DRG 488 ==
LOC: ER 21:33 → MEDSURG3 23:55
PROVIDERS: ADMIT Internal Medicine; ATTEND Internal Medicine
PROC: 0QSG04Z Reposition Right Tibia with Internal Fixation Device, Open Approach (ICD-10-PCS; principal; 2019-05-26)
PROC: 0SQC0ZZ Repair Right Knee Joint, Open Approach (ICD-10-PCS; 2019-05-26)
PROC: 0QUG0KZ Supplement Right Tibia with Nonautologous Tissue Substitute, Open Approach (ICD-10-PCS; 2019-05-26)
DX: M80.061A Age-related osteoporosis with current pathological fracture, right lower leg, initial encounter for fracture (principal); E43 Unspecified severe protein-calorie malnutrition; M25.061 Hemarthrosis, right knee; N39.0 Urinary tract infection, site not specified; I50.32 Chronic diastolic (congestive) heart failure; M80.861A Other osteoporosis with current pathological fracture, right lower leg, initial encounter for fracture; W01.0XXA Fall on same level from slipping, tripping and stumbling without subsequent striking against object, initial encounter; Y93.K1 Activity, walking an animal; Y92.480 Sidewalk as the place of occurrence of the external cause; Y99.8 Other external cause status; F32.9 Major depressive disorder, single episode, unspecified; Z96.611 Presence of right artificial shoulder joint; K21.9 Gastro-esophageal reflux disease without esophagitis; E11.9 Type 2 diabetes mellitus without complications; Z79.84 Long term (current) use of oral hypoglycemic drugs; S83.282A Other tear of lateral meniscus, current injury, left knee, initial encounter; F41.9 Anxiety disorder, unspecified; B96.20 Unspecified Escherichia coli [E. coli] as the cause of diseases classified elsewhere; M85.80 Other specified disorders of bone density and structure, unspecified site; M17.12 Unilateral primary osteoarthritis, left knee; I25.10 Atherosclerotic heart disease of native coronary artery without angina pectoris; E78.5 Hyperlipidemia, unspecified; D69.6 Thrombocytopenia, unspecified; Z79.4 Long term (current) use of insulin; I11.0 Hypertensive heart disease with heart failure; E66.9 Obesity, unspecified; Z68.30 Body mass index [BMI] 30.0-30.9, adult; Z71.3 Dietary counseling and surveillance; E86.0 Dehydration
CPT/HCPCS: 36415; 71045; 73551; 73560; 73700; 83735; 84100; 85025; 85730; 87077; 87086; 93005; A4649; A4663; G0378; J0360; J0690; J0696; J1100; J1170; J1650; J1815; J2270; J2405; J3010; J3475; J3490; J7060; J7120; Q0162

== ENCOUNTER 2022-02-15 17:17 | Inpatient (IN) | payer MEDICARE ==
[~2022-02-15] VITALS: Ht 157.5 cm; Wt 74.9 kg
[~2022-02-15 17:17] MED LIST changes: -ACET325T53 PO; -ATOR40TA PO; -BISA10SU12 RC; +CEPH500C2 PO; -CETI10TA14 PO; +CLON0.2T PO; -CLON0.2T12 PO; -DOCU100C36 PO; +ENOX40DI SQ; -ESCI10TA PO; +ESCI20TA44 PO; +ESOM40CA PO; -FERR325T28 PO; -HYDR-3326 PO; -INSU100V28 SQ; -LACT1CAP59 PO; -LEVO500T2 PO; -MAGN400O6 PO; -NIFE60TA69 PO; -NITR100C11 PO; -PANT40TA2 PO; +PIOG45TA5 PO; +ROSU20TA2 PO; +TRAM50TA2 PO; -VALS160T2 PO; +VALS40TA4 PO
[2022-02-15 17:44] LABS: HEMATOCRIT 34.7 % (31.2-41.9); MEAN CORPUSCULAR HEMOGLOBIN 27.7 uug (24.7-32.8); MEAN CORPUSCULAR VOLUME 84.4 fL (75.5-95.3); PLATELET COUNT (AUTO) 243 K/uL (179-408)
[2022-02-15] MEDS ORDERED: CLON0.2T PO (17:45)
[2022-02-15] MEDS ORDERED: GABA-532 PO (17:45)
[2022-02-15] MEDS ORDERED: ROSU20TA2 PO (17:45)
[2022-02-15] MEDS ORDERED: FURO40TA5 PO (17:45)
[2022-02-15] MEDS ORDERED: PIOG45TA5 PO (17:45)
[2022-02-15] MEDS ORDERED: ESCI20TA PO (17:45)
[2022-02-15] MEDS ORDERED: CARV25TA2 PO (17:45)
[2022-02-15] MEDS ORDERED: ESOM40CA PO (17:45)
[2022-02-15] MEDS ORDERED: METF-442 PO (17:45)
[2022-02-15] MEDS ORDERED: ALPR0.5T8 PO (17:45)
[2022-02-15 17:49] LABS: CARBON DIOXIDE 26 mmol/L (21-32); CHLORIDE 106 mmol/L (98-107); CREATININE 1.2 mg/dL (0.6-1.3); GLUCOSE 115 mg/dL (74-106); POTASSIUM 5.8 mmol/L (3.5-5.1); UREA NITROGEN, BLOOD 20 mg/dL (7-18)
[2022-02-15 17:58] LABS: ALANINE AMINOTRANSFERASE 13 U/L (14-59); ALKALINE PHOSPHATASE 113 U/L (50-136); ASPARTATE AMINOTRANSFERASE 11 U/L (15-37); BILIRUBIN,DIRECT 0.1 mg/dL (0.0-0.2); BILIRUBIN,TOTAL 0.3 mg/dL (0.2-1.0); TOTAL PROTEIN, SERUM 7.4 g/dL (6.4-8.2)
[2022-02-15] MEDS ORDERED: SODIUM POLYSTYRENE SULFONATE 15 G/60 ML LIQUID UDC PO ONE (18:00)
[2022-02-15] MEDS ORDERED: IV NORMAL SALINE 1000 ML BAG IV ONE (18:00)
[2022-02-15] MEDS ORDERED: IOHEXOL 350 100 ML INFUS..BTL ONE (18:15)
[2022-02-15] MEDS ORDERED: SWABABLE VALVE TRANSFER SET EA MC ONE (18:15)
[2022-02-15] MEDS ORDERED: IV NORMAL SALINE 250 ML IV ONE (18:15)
[2022-02-15] MEDS ORDERED: ASPIRIN EC 325 MG TABLET.DR PO SCH (18:45)
[2022-02-15] MEDS ORDERED: ASPIRIN EC 325 MG TABLET.DR PO ONE (19:30)
[2022-02-15] MEDS ORDERED: SODIUM POLYSTYRENE SULFONATE 15 G/60 ML LIQUID UDC ONE (19:31)
[2022-02-15] MEDS ORDERED: CLONIDINE HCL 0.2 MG TABLET ONE (19:50)
--- NOTE | 2022-02-15 20:48 | NUR ---
spoke with DR. Ledbetter because pt's bp is elevated at 230/[address] Ledbetter advised to call [facility] for orders.
--- NOTE | 2022-02-15 20:52 | NUR ---
Dr. Ledbetter spoke with the pt and he agreed for the pt to take coreg 25mg of her own medication. pt took this medicine.
[2022-02-15] MEDS ORDERED: LORAZEPAM 2 MG/1 ML VIAL ONE (20:53)
--- NOTE | 2022-02-15 20:59 | NUR ---
pt taken to cat scan.
[2022-02-15] MEDS ORDERED: LORAZEPAM 2 MG/1 ML VIAL IV ONE (21:00)
[2022-02-15] MEDS ORDERED: hydrALAZINE HCL 20 MG/1 ML VIAL IV PRN ×4 (22:00→23:30)
[2022-02-15] MEDS ORDERED: hydrALAZINE HCL 20 MG/1 ML VIAL ONE ×2 (22:04→22:48)
--- NOTE | 2022-02-15 22:38 | NUR ---
pt was taken manual 175/90
--- NOTE | 2022-02-15 22:40 | NUR ---
called to the third floor to give report I was told they cannot take the pt they do not have any staff. I called the warehouse sorter Jey and he also informed to me that they cannot take the pt there are no nurses to take the pt and she must remain in the er.
--- NOTE | 2022-02-15 23:05 | NUR ---
Mary Lou nguyendarcy in ED - 02/15/22 at 2315 by ZAKI call placed to [facility] as pt remains with elevated bp at 192/99 hr is 104
--- NOTE | 2022-02-15 23:15 | NUR ---
ekg was performed as pt is now tachycardiac with bp elevated 192/99 hr on ekg is 103. call placed to [facility]
--- NOTE | 2022-02-15 23:22 | NUR ---
new orders from [facility] Joseph for blood pressure meds.
[2022-02-15] MEDS ORDERED: AMLODIPINE 10 MG TABLET PO STA (23:30)
[2022-02-15] MEDS ORDERED: VALSARTAN 160 MG TABLET PO STA (23:30)
[2022-02-15] MEDS ORDERED: CLONIDINE HCL 0.2 MG TABLET PO PRN (23:30)
[2022-02-15] MEDS ORDERED: AMLODIPINE 5 MG TABLET ONE (23:43)
[2022-02-15] MEDS ORDERED: VALSARTAN 80 MG TABLET ONE (23:43)
[2022-02-16] VITALS (13 sets, daily range): BP systolic 120–162; BP diastolic 55–98
--- NOTE | 2022-02-16 02:54 | NUR ---
call to atilio miller np for pt with migraine elevated bp.
[2022-02-16] MEDS ORDERED: hydrALAZINE HCL 20 MG/1 ML VIAL ONE (02:57)
--- NOTE | 2022-02-16 03:00 | NUR ---
violeta miller called and is speaking with Dr. Ledbetter.
--- NOTE | 2022-02-16 03:07 | NUR ---
pt is now an icu status pt, I notifed the housekeeper supervisor of the status of the pt. pt to be started on nicardipine infusion to keep sbp less than 160.
[2022-02-16] MEDS ORDERED: HYDROMORPHONE 1 MG/1 ML DISP.SYRIN ONE (03:13)
[2022-02-16] MEDS ORDERED: ONDANSETRON 4 MG/2 ML VIAL ONE (03:13)
[2022-02-16] MEDS ORDERED: ONDANSETRON 4 MG/2 ML VIAL IV ONE (03:15)
[2022-02-16] MEDS ORDERED: HYDROMORPHONE 1 MG/1 ML DISP.SYRIN IV ONE (03:15)
[2022-02-16] MEDS ORDERED: HYDROMORPHONE 1 MG/1 ML DISP.SYRIN IV PRN (03:15)
[2022-02-16] MEDS ORDERED: LORAZEPAM 2 MG/1 ML VIAL IV STA (03:20)
--- NOTE | 2022-02-16 03:26 | NUR ---
pt at this time after the dilaudid does not feel very anxious and wants to wait on giving the ativan ivp. I will hold off on this medication per pt request.
[2022-02-16] MEDS ORDERED: NICARDIPINE IN NS 200 ML IV ONE ×2 (03:33→09:16)
--- NOTE | 2022-02-16 04:35 | NUR ---
monitoring pt bp q 30 minutes to ensure it is below the parameter of 160 spb of starting cardene. several attempts were made to start another iv on the pt and it was unsuccessful, this is necessary if cardene is started to have a second iv access.
[2022-02-16] MEDS: NICARDIPINE IN NS 200 ML IV PRN ×2 (05:44→09:17)
--- NOTE | 2022-02-16 05:45 | NUR ---
cardene infusion was started.
--- NOTE | 2022-02-16 06:05 | NUR ---
tapered to 2mg cardene as bp is lower than parameter.
--- NOTE | 2022-02-16 07:00 | NUR ---
Received pt. AAOX4. on Nicardipine drip with SBP of 146/91 HR of 121, saturation of 98% on RA. ICU status as ordered.
[2022-02-16] MEDS ORDERED: DEXTROSE 50% 50 ML DISP.SYRIN IV PRN (08:30)
[2022-02-16] MEDS ORDERED: AMLODIPINE 10 MG TABLET PO SCH (09:00)
[2022-02-16 09:10] LABS: MEAN CORPUSCULAR HEMOGLOBIN 27.7 uug (24.7-32.8); MEAN CORPUSCULAR VOLUME 83.5 fL (75.5-95.3); PLATELET COUNT (AUTO) 254 K/uL (179-408)
[2022-02-16 09:30] LABS: THYROID STIMULATING HORMONE 1.033 mIU/mL (0.358-3.740)
[2022-02-16] MEDS ORDERED: CARVEDILOL 25 MG TABLET ONE ×2 (09:30→16:53)
[2022-02-16] MEDS ORDERED: GABAPENTIN 100 MG CAPSULE ONE ×2 (09:30→16:53)
[2022-02-16] MEDS ORDERED: ESCITALOPRAM OXALATE 10 MG TABLET ONE (09:30)
[2022-02-16] MEDS ORDERED: FUROSEMIDE 40 MG TABLET ONE (09:30)
[2022-02-16] MEDS ORDERED: ASPIRIN 81 MG TAB.CHEW ONE (09:30)
[2022-02-16] MEDS ORDERED: VALSARTAN 80 MG TABLET ONE (09:31)
[2022-02-16] MEDS ORDERED: ENOXAPARIN SODIUM 40 MG/0.4 ML DISP.SYRIN SQ ONE (09:31)
[2022-02-16] MEDS ORDERED: AMLODIPINE 5 MG TABLET ONE (09:31)
[2022-02-16] MEDS ORDERED: PANTOPRAZOLE SODIUM 40 MG TABLET.DR PO ONE (09:32)
[2022-02-16] MEDS: CARVEDILOL 25 MG TABLET PO SCH ×2 (09:35→16:59)
[2022-02-16] MEDS: ESCITALOPRAM OXALATE 10 MG TABLET PO SCH (09:36)
[2022-02-16] MEDS: ASPIRIN EC 81 MG TABLET.DR PO SCH (09:36)
[2022-02-16] MEDS: FUROSEMIDE 40 MG TABLET PO SCH (09:36)
[2022-02-16] MEDS: VALSARTAN 160 MG TABLET PO SCH (09:36)
[2022-02-16] MEDS: PANTOPRAZOLE SODIUM 40 MG TABLET.DR PO SCH (09:37)
[2022-02-16] MEDS: GABAPENTIN 100 MG CAPSULE PO SCH ×3 (09:37→16:59)
[2022-02-16] MEDS: ENOXAPARIN SODIUM 40 MG/0.4 ML DISP.SYRIN SQ SCH (09:38)
[2022-02-16 09:57] LABS: POTASSIUM 3.6 mmol/L (3.5-5.1)
[2022-02-16 10:10] LABS: BILIRUBIN,TOTAL 0.5 mg/dL (0.2-1.0); TOTAL PROTEIN, SERUM 8.1 g/dL (6.4-8.2)
--- NOTE | 2022-02-16 10:21 | NUR ---
Attending Erlinda Gonzalez in the unit to see and examine pt. report given orders to continue with care plan received and to titrate off. Addendum: 02/16/22 at 1143 by DIONTE COLLINS RN As per attending if pt. tolerates well been off nicardipine drip pt. may be down-graded to telemetry status.
--- NOTE | 2022-02-16 10:30 | NUR ---
Pt's room mate Ms. Daniel in and Patient removed a yellow bracelett she's wearing and sent it home with her. Patient signed belongings form.
[2022-02-16] MEDS ORDERED: SPIR50TA5 PO (10:36)
[2022-02-16] MEDS ORDERED: hydrALAZINE HCL 20 MG/1 ML VIAL IV PRN (10:45)
[2022-02-16] MEDS ORDERED: ALPRAZOLAM 0.5 MG TABLET PO PRN (11:15)
[2022-02-16] MEDS ORDERED: diphenhydrAMINE 50 MG/1 ML VIAL ONE (11:23)
[2022-02-16] MEDS ORDERED: METOCLOPRAMIDE HCL 10 MG/2 ML VIAL ONE (11:23)
[2022-02-16] MEDS ORDERED: METOCLOPRAMIDE HCL 10 MG/2 ML VIAL IV ONE (11:30)
[2022-02-16] MEDS ORDERED: NORMAL SALINE IV PRN (11:30)
[2022-02-16] MEDS ORDERED: IV NORMAL SALINE 250 ML IV ONE (11:30)
[2022-02-16] MEDS ORDERED: NICARDIPINE HCL IV PRN (11:30)
[2022-02-16] MEDS ORDERED: diphenhydrAMINE 50 MG/1 ML VIAL IV ONE (11:30)
[2022-02-16] MEDS: BLOOD SUGAR DIAGNOSTIC 1 EACH STRIP VI SCH ×3 (11:40→20:33)
--- NOTE | 2022-02-16 11:43 | NUR ---
Benadryl and zofran given pt. off nicardinepine sbp within desired limits. Will continue to monitor.
[2022-02-16] MEDS: INSULIN REGULAR, HUMAN 300 UNIT/3 ML VIAL SQ PRN ×2 (11:58→20:33)
--- NOTE | 2022-02-16 12:02 | NUR ---
As order per attending pt. Ok to transfer to telemetry but pt. should remains under observation until headache subside.
[2022-02-16] MEDS: SPIRONOLACTONE 50 MG TABLET PO SCH (13:37)
[2022-02-16] MEDS ORDERED: ACETAMINOPHEN 325 MG TABLET ONE (16:53)
--- NOTE | 2022-02-16 16:55 | NUR ---
Patient with fever of 100.5 cooling measures implemented, and pt. medicated. Attending notified and blood cultures urine UA ordered.
[2022-02-16] MEDS ORDERED: ACETAMINOPHEN 325 MG TABLET PO ONE (17:00)
--- NOTE | 2022-02-16 18:52 | NUR ---
Pt. taken up to room 303 as ordered by shipfitters supervisor at this time.
--- NOTE | 2022-02-16 19:00 | NUR ---
Received patient in her room. Was transferred from ICU to telemetry unit. Patient AAOx4. In no acute distress. Denies any pain or SOB. NSR on tele with HR of 80/min. Midline on left upper arm and PIV on right upper arm intact and patent. Needs assessed and attended to. Safety measure initiated and call light within reached.
--- NOTE | 2022-02-16 19:08 | NUR ---
Report given to rn. Garay
[2022-02-16] MEDS: ATORVASTATIN 40 MG TABLET PO SCH (20:33)
[2022-02-16 22:43] LABS: *BILIRUBIN,URIN NEGATIVE (NEGATIVE); *BLOOD, URINE 1+ (NEGATIVE); *COLOR,URINE YELLOW (YELLOW); *KETONES,URINE TRACE (NEGATIVE); *UROBILINOGEN,URINE 0.2 E.U./dl (NORMAL); LEUKOCYTE ESTERASE ,URINE 1+ (NEGATIVE); NITRITE, URINE NEGATIVE (NEGATIVE); UGLUCOSE NEGATIVE (NEGATIVE)
[2022-02-16 22:54] LABS: *CLARITY,URINE HAZY (CLEAR)
[2022-02-16 23:04] LABS: *CREATININE,URINE 109.8 mg/dL (30-125); *URINE TOTAL PROTEIN RANDOM 263.2 mg/dL (<150/24HR)
[2022-02-16 23:09] LABS: BACTERIA,URINE MANY /HPF (NONE SEEN); SQUAMOUS EPITHELIAL CELL,UR FEW /HPF (NONE SEEN)
[2022-02-17] VITALS: BP 119/60
--- NOTE | 2022-02-17 02:24 | NUR ---
Patent UA resulted and noted + for bacteria. Informed CONVEYOR BELT OPERATOR Adrienne and ordered Rocephin 1g IV daily. Order noted and will carry out.
[2022-02-17] MEDS ORDERED: CEFTRIAXONE 1 G VIAL IV SCH (03:00)
[2022-02-17] MEDS ORDERED: CEFTRIAXONE 1 G VIAL ONE (03:06)
[2022-02-17 04:00] VITALS: BP 164/86
[2022-02-17] MEDS ORDERED: CEFTRIAXONE 1 G in IV DEXTROSE 5% 50 ML IV SCH ×2 (04:00→10:45)
--- NOTE | 2022-02-17 05:44 | NUR ---
Slept well during the night. In no acute distress. No complain of pain or SOB. NSR on tele with HR of 79/min. Midline on left upper arm and PIV on right forearm intact and patent. No adverse effect noted from IV antibiotic. Needs attended to and met. Safety measure maintained and call light within reached.
[2022-02-17] MEDS: PANTOPRAZOLE SODIUM 40 MG TABLET.DR PO SCH (06:03)
[2022-02-17 06:08] LABS: HEMATOCRIT 35.6 % (31.2-41.9); MEAN CORPUSCULAR HEMOGLOBIN 27.8 uug (24.7-32.8); MEAN CORPUSCULAR VOLUME 83.3 fL (75.5-95.3); PLATELET COUNT (AUTO) 233 K/uL (179-408)
[2022-02-17 06:16] LABS: CREATININE 1.3 mg/dL (0.6-1.3); POTASSIUM 3.3 mmol/L (3.5-5.1)
[2022-02-17 06:18] LABS: MAGNESIUM 1.5 mg/dL (1.8-2.4); PHOSPHOROUS 4.4 mg/dL (2.5-4.9)
[2022-02-17] MEDS: BLOOD SUGAR DIAGNOSTIC 1 EACH STRIP VI SCH ×4 (06:34→20:29)
--- NOTE | 2022-02-17 06:39 | NUR ---
TEXT DR. PAIGE FOR MRI APPROVAL.
[2022-02-17] MEDS: INSULIN REGULAR, HUMAN 300 UNIT/3 ML VIAL SQ PRN ×3 (08:06→20:34)
[2022-02-17] MEDS: SPIRONOLACTONE 50 MG TABLET PO SCH (08:41)
[2022-02-17] MEDS: GABAPENTIN 100 MG CAPSULE PO SCH ×3 (08:41→16:44)
[2022-02-17] MEDS: ESCITALOPRAM OXALATE 10 MG TABLET PO SCH (08:41)
[2022-02-17] MEDS: FUROSEMIDE 40 MG TABLET PO SCH (08:41)
[2022-02-17] MEDS: ASPIRIN EC 81 MG TABLET.DR PO SCH (08:41)
[2022-02-17] MEDS: VALSARTAN 160 MG TABLET PO SCH (08:41)
[2022-02-17] MEDS: CARVEDILOL 25 MG TABLET PO SCH ×2 (08:42→17:19)
[2022-02-17] MEDS: ENOXAPARIN SODIUM 40 MG/0.4 ML DISP.SYRIN SQ SCH (08:43)
--- NOTE | 2022-02-17 08:45 | NUR ---
MRI ON HOLD PER DR. PAIGE , HE WILL LET US KNOW.
[2022-02-17] MEDS ORDERED: AMLODIPINE 10 MG TABLET PO SCH (09:00)
[2022-02-17] MEDS ORDERED: POTASSIUM CHLORIDE 20 MEQ TAB.PRT.SR PO ONE (09:15)
[2022-02-17] MEDS: MAGNESIUM SULFATE/D5W 100 ML IV SCH ×2 (09:59→11:23)
--- NOTE | 2022-02-17 10:00 | NUR ---
MAG LEVEL IS 1.5 AND POTASSIUM IS 3.3 WITH REPLACEMENT ORDERS AND NOTED.
--- NOTE | 2022-02-17 11:30 | NUR ---
PATIENT IS FOR MRI OF THE BRAIN [employer]ER IS 1330 PATIENT AWARE.
[2022-02-17 11:31] VITALS: BP 118/59
[2022-02-17] MEDS ORDERED: HYDROCODONE/APAP 5-325MG TABLET PO PRN (12:30)
--- NOTE | 2022-02-17 13:26 | NUR ---
PATIENT PICKED UP BY [facility] TO [place] FOR MRI ORDERED.
--- NOTE | 2022-02-17 13:27 | NUR ---
PATIENT TOOK ALL HER PERSONAL BELONGS WITH HER STATED WANTS TO KEEP HER STUFF WITH HER.
--- NOTE | 2022-02-17 15:00 | NUR ---
PATIENT RETURNED FROM THE MRI ORDERED AWAITING FOR THE RESULTS DENIES DISCOMFORTS AT THIS TIME
[2022-02-17 15:35] VITALS: BP 112/67
--- NOTE | 2022-02-17 18:00 | NUR ---
RESTING IN BED DENIES DISCOMFORTS APPETITE IS GOOD NO NEURO DEFICITS NO SOB NOT IN DISTRESS AT THIS TIME.
[2022-02-17 20:00] VITALS: BP 100/49
[2022-02-17] MEDS: ATORVASTATIN 40 MG TABLET PO SCH (20:28)
[2022-02-17] MEDS ORDERED: NITR100C11 PO (20:53)
[2022-02-17] MEDS ORDERED: ASPI-618 PO (20:53)
[2022-02-17] MEDS ORDERED: CLOP75TA15 PO (20:53)
[2022-02-17] MEDS ORDERED: ATOR40TA PO (20:53)
--- NOTE | 2022-02-17 21:50 | NUR ---
Fritz Gonzalez called the station and notify staff that patient wanted to go home, and he's putting an order for discharge, patient alert oriented, no sob no chest pain, tele monitor sinus rhythm at this time, no complain of pain, tele monitor box was removed, and left upper arm midline was removed with intact tip, no bleeding noted, will be discharge home, given discharge papers and instructions, took all belongings and room mate will come and shredder picker the patient via private car.
--- NOTE | 2022-02-17 22:30 | NUR ---
Patient was picked up by room mates via private car, took all belongings, patient alert oriented, in stable and fair condition.
[2022-02-18 07:06] LABS: A/G RATIO 1.1 (0.7-1.7); ALPHA-1-GLOBULIN 0.2 g/dL (0.0-0.4); ALPHA-2-GLOBULIN 0.8 g/dL (0.4-1.0); BETA GLOBULIN 0.9 g/dL (0.7-1.3); GAMMA GLOBULIN 0.9 g/dL (0.4-1.8); GLOBULIN, TOTAL 2.8 g/dL (2.2-3.9); M-SPIKE Not Observed g/dL (Not Observed)
== END 2022-02-17 22:25 | disposition home or self-care (01) | DRG 69 ==
LOC: ER 17:45 → UNDOADMIN 21:03 → TELE3 21:03 → TRANSITION 02-16 07:11 → TELE3 02-16 18:53
PROVIDERS: ADMIT Nurse Practitioner Family; ATTEND Nurse Practitioner Family
PROC: 05H633Z Insertion of Infusion Device into Left Subclavian Vein, Percutaneous Approach (ICD-10-PCS; principal; 2022-02-16)
PROC: B547ZZA Ultrasonography of Left Subclavian Vein, Guidance (ICD-10-PCS; 2022-02-16)
DX: G45.9 Transient cerebral ischemic attack, unspecified (principal); N39.0 Urinary tract infection, site not specified; I16.1 Hypertensive emergency; I65.23 Occlusion and stenosis of bilateral carotid arteries; E87.5 Hyperkalemia; E11.9 Type 2 diabetes mellitus without complications; F41.9 Anxiety disorder, unspecified; E78.5 Hyperlipidemia, unspecified; I10 Essential (primary) hypertension; R00.0 Tachycardia, unspecified; G43.909 Migraine, unspecified, not intractable, without status migrainosus; Z79.84 Long term (current) use of oral hypoglycemic drugs; Z20.822 Contact with and (suspected) exposure to COVID-19; B96.89 Other specified bacterial agents as the cause of diseases classified elsewhere; Z88.2 Allergy status to sulfonamides; R29.810 Facial weakness; R20.0 Anesthesia of skin; Z86.73 Personal history of transient ischemic attack (TIA), and cerebral infarction without residual deficits; R29.700 NIHSS score 0
CPT/HCPCS: 36415; 70450; 70496; 70551; 71045; 83735; 83970; 84100; 84155; 84156; 84165; 84300; 84443; 84484; 85025; 85730; 87040; 87077; 87086; 93005; 93307; 97161; A4663; G0378; J0360; J0696; J1170; J1200; J1650; J1815; J2060; J2405; J2765; J3475; J3490; J7040; Q9967

== ENCOUNTER 2024-09-04 23:36 | Inpatient (IN) | payer MEDICARE ==
[~2024-09-04] VITALS: Ht 162.6 cm; Wt 67.8 kg
[~2024-09-04 23:36] MED LIST changes: +ALPR0.5T8 PO; +ASPI-618 PO; +ATOR40TA PO; -Blood Sugar Diagnostic VI; -CEPH500C2 PO; +CLOP75TA15 PO; -ENOX40DI SQ; +ESCI20TA PO; -ESCI20TA44 PO; +FURO40TA5 PO; +GABA-532 PO; -METF-440 PO; +METF-442 PO; +NITR100C11 PO; -ROSU20TA2 PO; +SPIR50TA5 PO; -TRAM50TA2 PO; -VALS40TA4 PO
[2024-09-05 01:00] LABS: BASOPHILS % (AUTO) 0.4 % (0.0-2.0); EOSINOPHILS # (AUTO) 0.2 K/uL (0.0-0.7); EOSINOPHILS % (AUTO) 2.6 % (0.0-7.0); HEMATOCRIT 35.6 % (31.2-41.9); HEMOGLOBIN 11.6 g/dL (10.9-14.3); LYMPHOCYTES # (AUTO) 1.1 K/uL (0.8-4.8); LYMPHOCYTES % (AUTO) 17.4 % (20.5-51.5); MEAN CORPUSCULAR HEMOGLOBIN 28.5 uug (24.7-32.8); MEAN CORPUSCULAR HGB CONC 33 g/dL (32.3-35.6); MEAN CORPUSCULAR VOLUME 87.2 fL (75.5-95.3); MONOCYTES # (AUTO) 0.4 K/uL (0.1-1.30); MONOCYTES % (AUTO) 6.9 % (0.0-11.0); NEUTROPHILS # (AUTO) 4.7 K/uL (1.8-8.9); NEUTROPHILS % (AUTO) 72.7 % (38.5-71.5); PLATELET COUNT (AUTO) 173 K/uL (179-408); RED BLOOD CELL COUNT(AUTO) 4.08 MIL/uL (3.63-4.92); RED CELL DISTRIBUTION WIDTH 15.4 % (12.3-17.7); WHITE BLOOD COUNT (AUTO) 6.5 K/uL (3.8-11.8)
[2024-09-05 01:11] LABS: DIFFERENTIAL COMMENT 1
[2024-09-05 01:36] LABS: ALBUMIN 4.2 g/dL (3.4-5.0); BILIRUBIN,DIRECT 0.1 mg/dL (0.0-0.2); BILIRUBIN,TOTAL 0.4 mg/dL (0.2-1.0)
[2024-09-05 01:46] LABS: CALCIUM 9.4 mg/dL (8.5-10.1); CARBON DIOXIDE 16 mmol/L (21-32); CHLORIDE 108 mmol/L (98-107); CREATININE 1.7 mg/dL (0.6-1.3); GLUCOSE 73 mg/dL (74-106); SODIUM SERUM 137 mmol/L (136-145); UREA NITROGEN, BLOOD 32 mg/dL (7-18)
[2024-09-05 01:51] LABS: POTASSIUM 8.1 mmol/L (3.5-5.1)
[2024-09-05] MEDS ORDERED: CALCIUM CHLORIDE 1 GM/10 ML DISP.SYRIN IVP ONE (02:23)
[2024-09-05] MEDS ORDERED: DEXTROSE 50% 50 ML DISP.SYRIN ONE ×2 (02:24→09:37)
[2024-09-05] MEDS ORDERED: FUROSEMIDE 20 MG/2 ML VIAL ONE (02:24)
[2024-09-05] MEDS ORDERED: SODIUM BICARBONATE 8.4% 50 MEQ/50 ML DISP.SYRIN IV ONE ×2 (02:24→09:37)
[2024-09-05] MEDS ORDERED: INSULIN REGULAR, HUMAN 1000 UNIT/10 ML VIAL ONE ×3 (02:25→19:35)
[2024-09-05] MEDS: SODIUM BICARBONATE 8.4% 50 MEQ/50 ML DISP.SYRIN IV ONE (02:28)
[2024-09-05] MEDS: INSULIN REGULAR, HUMAN 1000 UNIT/10 ML VIAL IV ONE ×2 (02:28→09:56)
[2024-09-05] MEDS: DEXTROSE 50% 50 ML DISP.SYRIN IV ONE ×2 (02:28→09:52)
[2024-09-05] MEDS: FUROSEMIDE 20 MG/2 ML VIAL IVP ONE (02:29)
[2024-09-05] MEDS: CALCIUM CHLORIDE 1 GM/10 ML DISP.SYRIN IVP ONE (02:29)
[2024-09-05 02:32] LABS: CALCIUM 8.9 mg/dL (8.5-10.1); CARBON DIOXIDE 19 mmol/L (21-32); CHLORIDE 109 mmol/L (98-107); CREATININE 1.6 mg/dL (0.6-1.3); GLUCOSE 73 mg/dL (74-106); SODIUM SERUM 138 mmol/L (136-145); UREA NITROGEN, BLOOD 31 mg/dL (7-18)
[2024-09-05 02:47] LABS: POTASSIUM 8.8 mmol/L (3.5-5.1)
[2024-09-05 02:51] LABS: ACETONE, SERUM NEGATIVE (NEGATIVE)
[2024-09-05 03:16] LABS: *BILIRUBIN,URIN NEGATIVE (NEGATIVE); *BLOOD, URINE NEGATIVE (NEGATIVE); *CLARITY,URINE CLEAR (CLEAR); *COLOR,URINE YELLOW (YELLOW); *KETONES,URINE NEGATIVE (NEGATIVE); *PROTEIN,URINE NEGATIVE (NEGATIVE); *UROBILINOGEN,URINE 0.2 E.U./dl (NORMAL); LEUKOCYTE ESTERASE ,URINE TRACE (NEGATIVE); NITRITE, URINE NEGATIVE (NEGATIVE); PH,URINE 5.5 (5.0-8.0); UGLUCOSE NEGATIVE (NEGATIVE)
[2024-09-05 03:22] LABS: RBC,URINE 0-3 /HPF (0-3)
[2024-09-05 03:23] LABS: BACTERIA,URINE FEW /HPF (NONE SEEN); SQUAMOUS EPITHELIAL CELL,UR NONE SEEN /HPF (NONE SEEN)
[2024-09-05] MEDS ORDERED: SODIUM POLYSTYRENE SULFONATE 15 G/60 ML LIQUID UDC ONE ×2 (03:48→03:49)
[2024-09-05] MEDS ORDERED: hydrALAZINE HCL 20 MG/1 ML VIAL ONE ×2 (03:48→07:32)
[2024-09-05] MEDS: hydrALAZINE HCL 20 MG/1 ML VIAL IV ONE (03:50)
[2024-09-05] MEDS: SODIUM POLYSTYRENE SULFONATE 15 G/60 ML LIQUID UDC PO ONE (03:50)
[2024-09-05] MEDS ORDERED: MAGNESIUM HYDROXIDE 30 ML LIQUID UDC PO PRN (04:30)
[2024-09-05] MEDS ORDERED: DEXTROSE 50% 50 ML DISP.SYRIN IV PRN (04:30)
[2024-09-05] MEDS ORDERED: REMEDY ESSENTIAL ZINC PASTE 113 GM TP PRN (04:30)
[2024-09-05 04:41] LABS: CALCIUM 10.8 mg/dL (8.5-10.1); CARBON DIOXIDE 21 mmol/L (21-32); CHLORIDE 109 mmol/L (98-107); CREATININE 1.7 mg/dL (0.6-1.3); GLUCOSE 203 mg/dL (74-106); SODIUM SERUM 141 mmol/L (136-145); UREA NITROGEN, BLOOD 30 mg/dL (7-18)
[2024-09-05 04:42] LABS: POTASSIUM 6.5 mmol/L (3.5-5.1)
[2024-09-05] MEDS ORDERED: POLYVINYL ALCOHOL OPHT DROPS 15 ML BOTTLE EACHEYE PRN (07:30)
[2024-09-05] MEDS: hydrALAZINE HCL 20 MG/1 ML VIAL IV PRN (07:38)
[2024-09-05] MEDS: BLOOD SUGAR DIAGNOSTIC 1 EACH STRIP VI SCH (07:41)
[2024-09-05] MEDS: INSULIN REGULAR, HUMAN 1000 UNIT/10 ML VIAL SQ PRN (07:48)
[2024-09-05] MEDS ORDERED: ALPRAZOLAM 0.5 MG TABLET ONE (08:02)
[2024-09-05] MEDS ORDERED: ONDANSETRON 4 MG/2 ML VIAL ONE (08:02)
[2024-09-05] MEDS: ONDANSETRON 4 MG/2 ML VIAL IV PRN (08:06)
[2024-09-05 08:39] LABS: BASOPHILS % (AUTO) 0.2 % (0.0-2.0); EOSINOPHILS # (AUTO) 0.1 K/uL (0.0-0.7); EOSINOPHILS % (AUTO) 1.2 % (0.0-7.0); HEMOGLOBIN 12.9 g/dL (10.9-14.3); LYMPHOCYTES # (AUTO) 0.8 K/uL (0.8-4.8); LYMPHOCYTES % (AUTO) 10.5 % (20.5-51.5); MEAN CORPUSCULAR HEMOGLOBIN 28.7 uug (24.7-32.8); MEAN CORPUSCULAR HGB CONC 33 g/dL (32.3-35.6); MEAN CORPUSCULAR VOLUME 87.2 fL (75.5-95.3); MONOCYTES # (AUTO) 0.2 K/uL (0.1-1.30); MONOCYTES % (AUTO) 3.1 % (0.0-11.0); NEUTROPHILS # (AUTO) 6.8 K/uL (1.8-8.9); PLATELET COUNT (AUTO) 241 K/uL (179-408); RED BLOOD CELL COUNT(AUTO) 4.48 MIL/uL (3.63-4.92); RED CELL DISTRIBUTION WIDTH 15.6 % (12.3-17.7); WHITE BLOOD COUNT (AUTO) 8.1 K/uL (3.8-11.8)
[2024-09-05 08:42] LABS: DIFFERENTIAL COMMENT 1
[2024-09-05 08:52] LABS: CALCIUM 11.7 mg/dL (8.5-10.1); CARBON DIOXIDE 20 mmol/L (21-32); CHLORIDE 107 mmol/L (98-107); CREATININE 1.9 mg/dL (0.6-1.3); GLUCOSE 213 mg/dL (74-106); SODIUM SERUM 140 mmol/L (136-145); UREA NITROGEN, BLOOD 31 mg/dL (7-18)
[2024-09-05] MEDS: ALPRAZOLAM 0.5 MG TABLET PO SCH (08:57)
[2024-09-05 08:58] LABS: MAGNESIUM 1.5 mg/dL (1.8-2.4)
[2024-09-05] MEDS: GABAPENTIN 100 MG CAPSULE PO SCH (09:00)
[2024-09-05] MEDS ORDERED: SPIRONOLACTONE 50 MG TABLET PO SCH (09:00)
[2024-09-05] MEDS: PANTOPRAZOLE SODIUM 40 MG VIAL IV SCH (09:00)
[2024-09-05] MEDS ORDERED: Medication Not On Formulary EA (Escitalopram Oxalate (Lexapro) 1 TAB) PO SCH (09:00)
[2024-09-05] MEDS ORDERED: CARVEDILOL 25 MG TABLET ONE ×2 (09:21→16:41)
[2024-09-05] MEDS: CARVEDILOL 25 MG TABLET PO SCH (09:24)
[2024-09-05] MEDS: IV NS 1000 ML 1,000 ML IV SCH (09:29)
[2024-09-05] MEDS: SODIUM BICARBONATE 8.4% 50 MEQ/50 ML VIAL IV ONE (09:52)
[2024-09-05] MEDS: ALBUTEROL SULFATE 2.5 MG/ 0.5 ML NEBU NEB ONE (09:52)
[2024-09-05] MEDS ORDERED: ALBUTEROL SULFATE 2.5 MG/ 0.5 ML NEBU ONE (10:07)
[2024-09-05] MEDS ORDERED: ACETAMINOPHEN 500 MG TABLET ONE (10:18)
[2024-09-05] MEDS ORDERED: ACETAMINOPHEN 325 MG TABLET ONE ×2 (10:19→18:00)
[2024-09-05] MEDS: ACETAMINOPHEN 325 MG TABLET PO PRN (10:22)
[2024-09-05] MEDS: SODIUM ZIRCONIUM CYCLOSILICATE 10 GM POWD.PACK PO ONE (10:28)
[2024-09-05] MEDS ORDERED: GABAPENTIN 100 MG CAPSULE ONE ×2 (10:52→16:41)
[2024-09-05] MEDS ORDERED: FUROSEMIDE 40 MG TABLET ONE (10:52)
[2024-09-05] MEDS ORDERED: CLOPIDOGREL 75 MG TABLET ONE (10:52)
[2024-09-05] MEDS ORDERED: ASPIRIN EC 81 MG TABLET.DR PO ONE (10:52)
[2024-09-05] MEDS ORDERED: PANTOPRAZOLE SODIUM 40 MG VIAL ONE (10:53)
[2024-09-05] MEDS: CLOPIDOGREL 75 MG TABLET PO SCH (10:57)
[2024-09-05] MEDS: ASPIRIN EC 81 MG TABLET.DR PO SCH (10:57)
[2024-09-05] MEDS: FUROSEMIDE 40 MG TABLET PO SCH (10:57)
[2024-09-05] MEDS: SODIUM ZIRCONIUM CYCLOSILICATE 10 GM POWD.PACK PO SCH (14:00)
[2024-09-05 17:27] LABS: CALCIUM 9.2 mg/dL (8.5-10.1); CARBON DIOXIDE 27 mmol/L (21-32); CHLORIDE 99 mmol/L (98-107); CREATININE 1.2 mg/dL (0.6-1.3); GLUCOSE 169 mg/dL (74-106); POTASSIUM 4.6 mmol/L (3.5-5.1); SODIUM SERUM 137 mmol/L (136-145); UREA NITROGEN, BLOOD 13 mg/dL (7-18)
[2024-09-05] MEDS: ATORVASTATIN 40 MG TABLET PO SCH (21:08)
[2024-09-05 23:42] VITALS: BP 158/88; TEMP 98.5; O2SAT 99
[2024-09-06 05:28] VITALS: BP 134/70; TEMP 98; O2SAT 95
[2024-09-06 07:34] LABS: BASOPHILS % (AUTO) 0.2 % (0.0-2.0); EOSINOPHILS # (AUTO) 0.2 K/uL (0.0-0.7); EOSINOPHILS % (AUTO) 3.2 % (0.0-7.0); HEMATOCRIT 34.1 % (31.2-41.9); HEMOGLOBIN 11.4 g/dL (10.9-14.3); LYMPHOCYTES % (AUTO) 13.2 % (20.5-51.5); MEAN CORPUSCULAR HEMOGLOBIN 28.8 uug (24.7-32.8); MEAN CORPUSCULAR HGB CONC 33 g/dL (32.3-35.6); MEAN CORPUSCULAR VOLUME 86.2 fL (75.5-95.3); MONOCYTES # (AUTO) 0.8 K/uL (0.1-1.30); MONOCYTES % (AUTO) 10.5 % (0.0-11.0); NEUTROPHILS # (AUTO) 5.5 K/uL (1.8-8.9); NEUTROPHILS % (AUTO) 72.9 % (38.5-71.5); PLATELET COUNT (AUTO) 147 K/uL (179-408); RED BLOOD CELL COUNT(AUTO) 3.95 MIL/uL (3.63-4.92); RED CELL DISTRIBUTION WIDTH 15.8 % (12.3-17.7); WHITE BLOOD COUNT (AUTO) 7.5 K/uL (3.8-11.8)
[2024-09-06 07:38] LABS: DIFFERENTIAL COMMENT 1
[2024-09-06 07:45] VITALS: BP 168/88; TEMP 98.6; O2SAT 97
[2024-09-06 07:49] LABS: CALCIUM 8.4 mg/dL (8.5-10.1); CARBON DIOXIDE 26 mmol/L (21-32); CHLORIDE 103 mmol/L (98-107); CREATININE 1.8 mg/dL (0.6-1.3); GLUCOSE 88 mg/dL (74-106); MAGNESIUM 1.6 mg/dL (1.8-2.4); PHOSPHOROUS 3.8 mg/dL (2.5-4.9); POTASSIUM 4.6 mmol/L (3.5-5.1); SODIUM SERUM 139 mmol/L (136-145); UREA NITROGEN, BLOOD 17 mg/dL (7-18)
[2024-09-06] MEDS: ESCITALOPRAM OXALATE 10 MG TABLET PO SCH (08:20)
[2024-09-06 11:45] VITALS: BP 138/86; TEMP 97.7; O2SAT 99
[2024-09-06] MEDS: MAGNESIUM OXIDE 400 MG TABLET PO ONE (13:11)
[2024-09-06 15:46] VITALS: BP 169/98; TEMP 98.4; O2SAT 97
[2024-09-06 18:28] VITALS: BP 124/64; TEMP 98.1; O2SAT 97
[2024-09-07 04:58] VITALS: BP 184/91; TEMP 98.2; O2SAT 93
[2024-09-07] MEDS: PANTOPRAZOLE SODIUM 40 MG TABLET.DR PO SCH (06:14)
[2024-09-07 07:46] LABS: CALCIUM 8.3 mg/dL (8.5-10.1); CARBON DIOXIDE 25 mmol/L (21-32); CHLORIDE 108 mmol/L (98-107); CREATININE 1.5 mg/dL (0.6-1.3); GLUCOSE 119 mg/dL (74-106); MAGNESIUM 1.8 mg/dL (1.8-2.4); POTASSIUM 4.7 mmol/L (3.5-5.1); SODIUM SERUM 142 mmol/L (136-145); UREA NITROGEN, BLOOD 25 mg/dL (7-18)
[2024-09-07] MEDS: METOPROLOL TARTRATE 25 MG TABLET PO SCH (08:29)
[2024-09-07 09:53] LABS: THYROID STIMULATING HORMONE 0.452 mIU/mL (0.358-3.740)
[2024-09-07 10:57] VITALS: BP 118/64
[2024-09-07] MEDS: DILTIAZEM HCL CD 120 MG CAP.SR.24H PO SCH (11:28)
[2024-09-07 16:17] VITALS: BP 185/85
[2024-09-07] MEDS ORDERED: DILT120C87 PO (19:31)
[2024-09-07 21:15] VITALS: BP 105/60; TEMP 98.3; O2SAT 95
[2024-09-08] VITALS: BP 166/82; TEMP 98.6; O2SAT 95
[2024-09-08 04:00] VITALS: BP 175/76; TEMP 97.6; O2SAT 98
[2024-09-08 07:39] VITALS: BP 191/85; TEMP 98.6; O2SAT 97
[2024-09-08] MEDS: CLONIDINE HCL 0.2 MG TABLET PO SCH (07:53)
[2024-09-08 08:11] VITALS: BP 152/107
[2024-09-08 08:45] VITALS: BP 108/52
[2024-09-08 11:11] VITALS: BP 118/62; TEMP 98.2; O2SAT 95
[2024-09-08 17:06] LABS: RENIN 1.6 ng/mL/hr (.)
== END 2024-09-08 11:25 | disposition home or self-care (01) | DRG 640 ==
LOC: ER 23:39 → TRANSITION 09-05 04:05 → TELE3 09-05 23:00
PROVIDERS: ATTEND Internal Medicine
PROC: 06HY33Z Insertion of Infusion Device into Lower Vein, Percutaneous Approach (ICD-10-PCS; principal; 2024-09-05)
PROC: 5A1D70Z Performance of Urinary Filtration, Intermittent, Less than 6 Hours Per Day (ICD-10-PCS; 2024-09-05)
DX: E87.5 Hyperkalemia (principal); N17.0 Acute kidney failure with tubular necrosis; D68.59 Other primary thrombophilia; E87.20 Acidosis, unspecified; E83.52 Hypercalcemia; E83.39 Other disorders of phosphorus metabolism; D69.6 Thrombocytopenia, unspecified; K21.9 Gastro-esophageal reflux disease without esophagitis; Z66 Do not resuscitate; M21.371 Foot drop, right foot; R94.31 Abnormal electrocardiogram [ECG] [EKG]; M89.8X9 Other specified disorders of bone, unspecified site; Z96.651 Presence of right artificial knee joint; Z74.09 Other reduced mobility; Z88.2 Allergy status to sulfonamides; Z79.84 Long term (current) use of oral hypoglycemic drugs; Z79.02 Long term (current) use of antithrombotics/antiplatelets; Z86.73 Personal history of transient ischemic attack (TIA), and cerebral infarction without residual deficits; Z79.82 Long term (current) use of aspirin; E78.5 Hyperlipidemia, unspecified; I25.10 Atherosclerotic heart disease of native coronary artery without angina pectoris; E66.9 Obesity, unspecified; Z68.25 Body mass index [BMI] 25.0-25.9, adult; N28.1 Cyst of kidney, acquired; I12.9 Hypertensive chronic kidney disease with stage 1 through stage 4 chronic kidney disease, or unspecified chronic kidney disease; E11.22 Type 2 diabetes mellitus with diabetic chronic kidney disease; N18.9 Chronic kidney disease, unspecified
CPT/HCPCS: 36415; 73551; 73590; 76770; 82088; 82533; 83605; 83735; 84100; 84244; 84443; 84484; 85025; 90937; 93005; A4606; A4663; A6213; A9150; G0378; J0360; J1815; J1940; J2405; J2470; J3490; J7040